=== PATIENT | female | born 1990 | race Hispanic/Latino ===

== ENCOUNTER 2018-10-23 17:39 | Emergency (ER) | payer OTHER ==
--- OUTSIDE RECORDS SUMMARY | 2018-10-23 17:42 | XMS REPORT ---
:1990 [facility] Address [address] [place] [address] Dr. [address] [place] [id number] Care Team Providers Name Role Phone Unavailable Unavailable Unavailable Problems This patient has no known problems. Allergies, Adverse Reactions, Alerts This patient has no known allergies or adverse reactions. Medications This patient has no known medications.
--- OUTSIDE RECORDS SUMMARY | 2018-10-23 17:42 | XMS REPORT | Summary of Care ---
:1990 Author Organization [facility] Address [address] [place] [id number]- Encounter HQ Encntr_alias(FIN) [id number] Date(s): 04/10/16 - 04/10/[address] [address]- [phone] Discharge Disposition: Home or Self Care Attending Physician: Marily Pimentel MD Admitting Physician: Marily Pimentel MD Referring Physician: Marily Pimentel MD Vital Signs No data available for this section Problem List No data available for this section Allergies, Adverse Reactions, Alerts Substance Reaction Severity Status NKDA Active Medications No data available for this section Results No data available for this section Immunizations No data available for this section Procedures No data available for this section Social History No data available for this section Assessment and Plan No data available for this section
--- OUTSIDE RECORDS SUMMARY | 2018-10-23 17:42 | XMS REPORT | Continuity of Care Document ---
:1990 Author Organization Interface Problems Problem Status Onset Classification Date Comments Source Date Reported R51 HEADACHE Active [place] [address] [place] R[address] HEADACHE Active [facility] Medications Medication Details Route Status Patient Ordering Order Source Instructions Provider Date Allergies, Adverse Reactions, Alerts Substance Category Reaction Severity Reaction Status Date Comments Source type Reported Immunizations Immunization Date Given Site Status Last Updated Comments Source Results Order Results Value Reference Date Interpretation Comments Source Name Range Brain wo Brain wo EXAM: CT BRAIN WITHOUT CONTRAST 04/10 - contrast contrast /2015 - [facility] DATE: 04/10/2016 1:28 PM CDT Read by: Alexandro Polo MD Dictated Date/time: 04/10/16 15:00 Electronically Signed by: Alexandro Polo MD 04/10/16 15:01 FINAL REPORT INDICATION: R51 Headache COMPARISON: None. TECHNIQUE: Routine axial CT images of the brain were obtained. IV contrast: None. DLP: mGy-cm FINDINGS: Non-contrast images of the head demonstrate no edema, hemorrhage, mass lesion or other acute intracranial abnormality. Valadez-white matter distinction is preserved. The ventricles are normal. The basal cisterns and sulci are normal in size. Mild chronic inflammatory change of the paranasal sinus. Partial opacification of the mastoid air cells. IMPRESSION: 1. No definite acute infarct or intracranial hemorrhage detected. If there is further concern for intracranial pathology or acute stroke, MRI of the brain may be performed for complete assessment. SL: [id number] Vital Signs Vital Sign Value Date Comments Source Encounters Location Location Encounter Encounter Reason Attending ADM DC Status Source Details Type Number For Provider Date Date Visit [facility] Outpatient [id number] Amrily 04/10 04/11 DB Pimentel /2015 [facility] Procedures Procedure Code Date Perfomer Comments Source
[2018-10-23 18:42] LABS: Urine Blood NEGATIVE (NEG); Urine Glucose 2+ (NEG); Urine Protein 1+ (NEG); Urine Specific Gravity 1.015 (1.005-1.030); Urine pH 6.5 (5.0-7.0)
[2018-10-23] MEDS ORDERED: FENTANYL CITR 100 MCG/2 ML ONE ×2 (18:47→19:49)
[2018-10-23] MEDS ORDERED: ONDANSETRON 4 MG/2 ML VIAL ONE (18:47)
[2018-10-23] MEDS ORDERED: NA CHLORIDE 0.9% 1,000 ML ONE (18:47)
[2018-10-23 18:53] LABS: Absolute Lymphocytes (CBC) 3.7 K/uL (0.7-4.9); Absolute Monocytes 0.7 K/uL (0.1-1.3); Absolute Neutrophil 4.1 K/uL (1.8-8.0); Basophils % 0.5 % (0-1.3); Eosinophils % 0.7 % (0-4.4); Hematocrit 42.7 % (36.0-45.0); Lymphocytes % 43.3 % (15.3-44.8); MPV 8.1 fL (7.6-11.3); Monocytes % 7.9 % (3.3-12.3); RBC Red Blood Cell Count 4.88 M/uL (3.86-4.86)
[2018-10-23 19:08] LABS: Urine Bacteria <20 /HPF (<20); Urine RBC NONE SEEN /HPF (NONE SEEN); Urine Yeast FEW (NONE SEEN)
[2018-10-23 19:09] LABS: Urine Culture Reflex Order NOT NEEDED
[2018-10-23 19:10] LABS: BUN Blood Urea Nitrogen 10 mg/dL (7-18); Bicarbonate 28 mmol/L (21-32); Glucose Level 90 mg/dL (74-106); Potassium 3.2 mmol/L (3.5-5.1); Sodium Level 139 mmol/L (136-145)
[2018-10-23] MEDS ORDERED: KCL 20 MEQ/100 mL IVPB 20 MEQ/100 ML BAG IV ONE (19:46)
--- NOTE | 2018-10-23 20:33 | RAD REPORT ---
EXAM DESCRIPTION: CT - Abdomen Pelvis W Contrast - 10/23/2018 8:18 pm CLINICAL HISTORY: Abdominal pain, right flank pain COMPARISON: None. TECHNIQUE: Biphasic, helical CT imaging of the abdomen and pelvis was performed following 100 ml non -ionic IV contrast. Oral contrast was given. All CT scans are performed using dose optimization technique as appropriate and may include automated exposure control or mA/KV adjustment according to patient size. FINDINGS: No suspicious findings in the lung bases. The liver, spleen, and pancreas show no suspicious findings. Gallbladder and biliary tree are also wi thout suspicious finding. Symmetric renal function is seen with no hydronephrosis or suspicious renal mass. No pyelonephritis o r acute parenchymal process. No bladder abnormalities. No adrenal abnormalities. No dilated bowel loops or bowel wall thickening. Appendix is normal. No free air or pneumatosis. No f ocal inflammatory stranding. No hernia, mass or bulky lymphadenopathy. No uterine abnormality. Physiologic quantity of free fluid is seen in the cul-de-sac. Left ovary is u nremarkable. Right ovary contains a 3 centimeter cyst. No cyst rupture or hemorrhage findings. No suspicious bony findings. IMPRESSION: Contrast enhanced CT abdomen and pelvis showing no acute or emergent finding. A 3 centimeter right ovarian cyst is present without rupture or hemorrhage finding.
[2018-10-23] MEDS ORDERED: KETOROLAC 30 MG/ML INJ ONE (21:18)
--- NOTE | 2018-10-23 21:28 | EDPHYS ---
Physician Documentation [facility] Name: Idalia Pastor Age: 28 yrs Sex: Female : 1990 Arrival Date: 10/23/2018 Time: 17:42 Bed 5 Private MD: ED Physician Avinash Raman HPI: 10/23 20:12 This 28 yrs old Female presents to ER via Ambulatory with complaints of snw Abdominal Pain, Back Pain. 20:12 The patient presents with abdominal pain. Onset: The symptoms/episode began/occurred snw suddenly, 3 day(s) ago, and became worse today, and became persistent. The symptoms radiate to back. Associated signs and symptoms: Pertinent positives: nausea and vomiting. The symptoms are described as constant, sharp. Severity of pain: At its worst the pain was moderate severe. The patient has not experienced similar symptoms in the past. saw underwriter recently (Sunday) dx with UTI, taking Macrobid. 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 - Social history:: Smoking status: . - Ebola Screening: : Patient denies travel to an Ebola-affected area in the 21 days before illness onset. ROS: 20:10 Constitutional: Negative for fever, chills, and weight loss, Eyes: Negative for injury, snw pain, redness, and discharge, ENT: Negative for injury, pain, and discharge, Neck: Negative for injury, pain, and swelling, Cardiovascular: Negative for chest pain, palpitations, and edema, Respiratory: Negative for shortness of breath, cough, wheezing, and pleuritic chest pain, Back: Negative for injury and pain, : Negative for injury, bleeding, discharge, and swelling, MS/Extremity: Negative for injury and deformity, Skin: Negative for injury, rash, and discoloration, Neuro: Negative for headache, weakness, numbness, tingling, and seizure. 20:10 Abdomen/GI: Positive for abdominal pain, nausea, abdominal cramps, pain from esophagus to rectum and right lower quad tenderness. Exam: 20:10 Constitutional: This is a well developed, well nourished patient who is awake, alert, snw and in no acute distress. Head/Face: Normocephalic, atraumatic. Eyes: Pupils equal round and reactive to light, extra-ocular motions intact. Lids and lashes normal. Conjunctiva and sclera are non-icteric and not injected. Cornea within normal limits. Periorbital areas with no swelling, redness, or edema. ENT: Nares patent. No nasal discharge, no septal abnormalities noted. Tympanic membranes are normal and external auditory canals are clear. Oropharynx with no redness, swelling, or masses, exudates, or evidence of obstruction, uvula midline. Mucous membranes moist. Neck: Trachea midline, no thyromegaly or masses palpated, and no cervical lymphadenopathy. Supple, full range of motion without nuchal rigidity, or vertebral point tenderness. No Meningismus. Chest/axilla: Normal chest wall appearance and motion. Nontender with no deformity. No lesions are appreciated. Cardiovascular: Regular rate and rhythm with a normal S1 and S2. No gallops, murmurs, or rubs. Normal PMI, no JVD. No pulse deficits. Respiratory: Lungs have equal breath sounds bilaterally, clear to auscultation and percussion. No rales, rhonchi or wheezes noted. No increased work of breathing, no retractions or nasal flaring. Back: No spinal tenderness. No costovertebral tenderness. Full range of motion. Skin: Warm, dry with normal turgor. Normal color with no rashes, no lesions, and no evidence of cellulitis. MS/ Extremity: Pulses equal, no cyanosis. Neurovascular intact. Full, normal range of motion. Neuro: Awake and alert, GCS 15, oriented to person, place, time, and situation. Cranial nerves II-XII grossly intact. Motor strength 5/5 in all extremities. Sensory grossly intact. Cerebellar exam normal. Normal gait. Psych: Awake, alert, with orientation to person, place and time. Behavior, mood, and affect are within normal limits. 20:10 Abdomen/GI: Inspection: abdomen appears normal, Bowel sounds: normal, in all quadrants, Palpation: moderate abdominal tenderness, severe abdominal tenderness, in the right lower quadrant. Vital Signs: 17:47 BP 144 / 84; Pulse 68; Resp 17; Temp 97.9(TE); Pulse Ox 98% on R/A; Weight 55.79 kg tw2 (R); Height 4 ft. 11 in. (149.86 cm); Pain 8/10; 18:45 BP 110 / 81; Pulse 83; Resp 15; Pulse Ox 99% on R/A; hb 20:34 BP 126 / 75; Pulse 64; Resp 16 S; Pulse Ox 100% on R/A; bb 20:35 BP 123 / 84; Pulse 62; Resp 16; Pulse Ox 100% on R/A; mt 21:30 BP 126 / 81; Pulse 65; Resp 16 S; Pulse Ox 100% on R/A; jd3 17:47 Body Mass Index 24.84 (55.79 kg, 149.86 cm) tw2 MDM: 17:58 Patient medically screened. snw 20:14 Data reviewed: vital signs, nurses notes. Data interpreted: Pulse oximetry: on room air snw is 99 %. Interpretation: normal. Response to treatment: fentanyl repeated at 1950. Awaiting: Pt to CT via w/c. 10/23 18:01 Order name: CBC with Diff; Complete Time: 19:00 snw 10/23 18:01 Order name: Chem 7; Complete Time: 19:26 snw 10/23 18:01 Order name: Urine Microscopic Only; Complete Time: 19:26 snw 10/23 18:01 Order name: Urine Culture snw 10/23 18:01 Order name: Blood Culture Adult (2) snw 10/23 18:28 Order name: Urine Dipstick--Ancillary (enter results); Complete Time: 18:46 bd 10/23 18:01 Order name: CT Abd/Pelvis - W/Contrast; Complete Time: 20:34 snw 10/23 18:28 Order name: Urine --Ancillary (enter results); Complete Time: 18:46 bd 10/23 18:34 Order name: Glucose, Ancillary Testing; Complete Time: 18:37 EDMS 10/23 18:01 Order name: Urine Test (obtain specimen); Complete Time: 18:44 snw 10/23 18:01 Order name: Urine Dipstick-Ancillary (obtain specimen); Complete Time: 18:44 snw 10/23 18:01 Order name: FSBS; Complete Time: 18:32 snw 10/23 18:02 Order name: NPO; Complete Time: 18:34 snw Administered Medications: 18:43 Drug: NS 0.9% 1000 ml Route: IV; Rate: 1 bolus; Site: right antecubital; hb 19:15 Follow up: Response: No adverse reaction; IV Status: Completed infusion jd3 18:43 Drug: fentaNYL (PF) 25 mcg Route: IVP; Site: right antecubital; hb 19:15 Follow up: Response: No adverse reaction jd3 18:43 Drug: Zofran 4 mg Route: IVP; Site: right antecubital; hb 19:45 Follow up: Response: No adverse reaction jd3 19:45 Drug: NS 0.9% 1000 ml Route: IV; Rate: 1 bolus; Site: right antecubital; jd3 22:12 Follow up: Response: No adverse reaction; IV Status: Completed infusion jd3 19:45 Drug: Potassium Chloride 20 mEq Route: IV; Rate: calculated rate; Site: right j antecubital; 22:12 Follow up: Response: No adverse reaction; IV Status: Completed infusion jd3 19:45 Drug: fentaNYL (PF) 25 mcg Route: IVP; Site: right antecubital; jd3 22:13 Follow up: Response: No adverse reaction jd3 21:00 Drug: TORadol 30 mg Route: IVP; Site: right antecubital; jd3 22:13 Follow up: Response: No adverse reaction jd3 Point of Care Testing: Blood Glucose: 18:23 Blood Glucose: 100 mg/dL; dh3 Ranges: Critical Glucose Levels:Adult <50 mg/dl or >400 mg/dl <40 mg/dl or >180 mg/dl Disposition: 10/24 06:50 Co-signature as Attending Physician, Avinash Raman MD I agree with the assessment and kdr plan of care. PA/SALESPERSON MEN'S FURNISHINGS's history reviewed, patient interviewed, and examined. Disposition: 10/23/18 21:27 Discharged to Home. Impression: Other and unspecified ovarian cysts, Unspecified abdominal pain, Hypokalemia. - Condition is Stable. - Discharge Instructions: Abdominal Pain, Adult, Potassium Content of Foods, Ovarian Cyst, Hypokalemia. - Prescriptions for Bentyl 20 mg Oral Tablet - take 1 tablet by ORAL route every 6 hours As needed; 20 tablet. - Medication Reconciliation Form, Thank You Letter, Antibiotic Education, Prescription Opioid Use form. - Follow up: Private Physician; When: 2 - 3 days; Reason: Recheck today's complaints, Continuance of care, Re-evaluation by your physician. Follow up: Emergency Department; When: As needed; Reason: Worsening of condition. Signatures: Dispatcher [employer] EDMS Avinash Raman MD MD [facility] Patt Stinson, MODESTO-C CHERRY PICKER OPERATOR-Csnw Viviana Khan, RN RN Genesis Figueroa RN RN tw2 Rosas Bruce RN RN jd3 Corrections: (The following items were deleted from the chart) 10/23 22:14 21:27 10/23/2018 21:27 Discharged to Home. Impression: Other and unspecified ovarian jd3 cysts; Unspecified abdominal pain; Hypokalemia. Condition is Stable. Forms are Medication Reconciliation Form, Thank You Letter, Antibiotic Education, Prescription Opioid Use. Follow up: Private Physician; When: 2 - 3 days; Reason: Recheck today's complaints, Continuance of care, Re-evaluation by your physician. Follow up: Emergency Department; When: As needed; Reason: Worsening of condition. snw
--- NOTE | 2018-10-23 21:28 | ER ---
Nurse's Notes [facility] Name: Idalia Pastor Age: 28 yrs Sex: Female : 1990 Arrival Date: 10/23/2018 Time: 17:42 Bed 5 Private MD: Diagnosis: Other and unspecified ovarian cysts;Unspecified abdominal pain;Hypokalemia Presentation: 10/23 17:45 Presenting complaint: Patient states: last Sunday i went to my dr appt my dr sent me tw2 here for xray and blood work and it has gotten awful today, i have this pain all the way from my throat down to my waist like this burning pain, and my right side has been hurting, i havent been able to eat or drink, it hurts all the way through my back. Transition of care: patient was not received from another setting of care. Onset of symptoms was October 23, 2018. Risk Assessment: Do you want to hurt yourself or someone else? Patient reports no desire to harm self or others. Initial Sepsis Screen: Does the patient meet any 2 criteria? No. Patient's initial sepsis screen is negative. Does the patient have a suspected source of infection? No. Patient's initial sepsis screen is negative. Care prior to arrival: None. 17:45 Method Of Arrival: Ambulatory tw2 17:45 Acuity: KEN 3 tw2 Triage Assessment: 17:48 General: Appears uncomfortable, Behavior is calm, cooperative, appropriate for age. tw2 Pain: Complains of pain in abdomen Pain radiates to back. GI: Reports lower abdominal pain, upper abdominal pain, bloating, nausea. 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 - Social history:: Smoking status: . - Ebola Screening: : Patient denies travel to an Ebola-affected area in the 21 days before illness onset. Screenin:15 Abuse screen: Denies threats or abuse. Denies injuries from another. Nutritional hb screening: No deficits noted. Tuberculosis screening: No symptoms or risk factors identified. Fall Risk None identified. Assessment: 18:15 General: Appears in no apparent distress. uncomfortable, Behavior is calm, cooperative. hb Pain: Pain currently is 8 out of 10 on a pain scale. Neuro: Level of Consciousness is awake, alert, obeys commands, Oriented to person, place, time, situation. Cardiovascular: Capillary refill < 3 seconds Patient's skin is warm and dry. Respiratory: Airway is patent Respiratory effort is even, unlabored, Respiratory pattern is regular, symmetrical, Breath sounds are clear bilaterally. GI: Abdomen is non-distended, Bowel sounds present X 4 quads. Abd is soft and non tender X 4 quads. Reports lower abdominal pain, upper abdominal pain, nausea. : No signs and/or symptoms were reported regarding the genitourinary system. EENT: No signs and/or symptoms were reported regarding the EENT system. Derm: Skin is intact, is healthy with good turgor. Musculoskeletal: No signs and/or symptoms reported regarding the musculoskeletal system. 19:01 Reassessment: PT finished drinking oral contrast, Ted in CT notified. hb 19:30 Reassessment: Patient appears in no apparent distress at this time. Patient and/or bb family updated on plan of care and expected duration. Pain level reassessed. Patient is alert, oriented x 3, equal unlabored respirations, skin warm/dry/pink. 20:35 Reassessment: Patient appears in no apparent distress at this time. Patient and/or bb family updated on plan of care and expected duration. Pain level reassessed. Patient is alert, oriented x 3, equal unlabored respirations, skin warm/dry/pink. 21:31 Reassessment: Patient appears in no apparent distress at this time. Patient and/or jd3 family updated on plan of care and expected duration. Pain level reassessed. Patient is alert, oriented x 3, equal unlabored respirations, skin warm/dry/pink. awaiting IV infusion to finish before discharge. 22:10 Reassessment: Patient appears in no apparent distress at this time. Patient and/or jd3 family updated on plan of care and expected duration. Pain level reassessed. Patient is alert, oriented x 3, equal unlabored respirations, skin warm/dry/pink. Patient states feeling better. Vital Signs: 17:47 BP 144 / 84; Pulse 68; Resp 17; Temp 97.9(TE); Pulse Ox 98% on R/A; Weight 55.79 kg tw2 (R); Height 4 ft. 11 in. (149.86 cm); Pain 8/10; 18:45 BP 110 / 81; Pulse 83; Resp 15; Pulse Ox 99% on R/A; hb 20:34 BP 126 / 75; Pulse 64; Resp 16 S; Pulse Ox 100% on R/A; bb 20:35 BP 123 / 84; Pulse 62; Resp 16; Pulse Ox 100% on R/A; mt 21:30 BP 126 / 81; Pulse 65; Resp 16 S; Pulse Ox 100% on R/A; jd3 17:47 Body Mass Index 24.84 (55.79 kg, 149.86 cm) tw2 ED Course: 17:42 Patient arrived in ED. mr 17:47 Triage completed. tw2 17:48 Arm band placed on. tw2 17:58 Patt Stinson [facility]C [facility] snw 17:58 Avinash Raman MD is Attending Physician. snw 18:04 Odilon Greer, LONG is Primary Nurse. bp 18:15 Patient has correct armband on for positive identification. Placed in gown. Bed in low hb position. Call light in reach. Side rails up X 1. 18:21 Initial lab(s) drawn, by me, sent to lab. First set of blood cultures drawn by me. 3 Inserted saline lock: 20 gauge in right antecubital area, using aseptic technique. Blood collected. 18:40 Second set of blood cultures drawn by me. dh3 20:15 CT completed. Patient tolerated procedure well. Patient moved back from CT. vm2 20:18 CT Abd/Pelvis - W/Contrast In Process Unspecified. EDMS 22:09 No provider procedures requiring assistance completed. IV discontinued, intact, jd3 bleeding controlled, No redness/swelling at site. Pressure dressing applied. Administered Medications: 18:43 Drug: NS 0.9% 1000 ml Route: IV; Rate: 1 bolus; Site: right antecubital; hb 19:15 Follow up: Response: No adverse reaction; IV Status: Completed infusion jd3 18:43 Drug: fentaNYL (PF) 25 mcg Route: IVP; Site: right antecubital; hb 19:15 Follow up: Response: No adverse reaction jd3 18:43 Drug: Zofran 4 mg Route: IVP; Site: right antecubital; hb 19:45 Follow up: Response: No adverse reaction jd3 19:45 Drug: NS 0.9% 1000 ml Route: IV; Rate: 1 bolus; Site: right antecubital; jd3 22:12 Follow up: Response: No adverse reaction; IV Status: Completed infusion jd3 19:45 Drug: Potassium Chloride 20 mEq Route: IV; Rate: calculated rate; Site: right jd3 antecubital; 22:12 Follow up: Response: No adverse reaction; IV Status: Completed infusion jd3 19:45 Drug: fentaNYL (PF) 25 mcg Route: IVP; Site: right antecubital; jd3 22:13 Follow up: Response: No adverse reaction jd3 21:00 Drug: TORadol 30 mg Route: IVP; Site: right antecubital; jd3 22:13 Follow up: Response: No adverse reaction jd3 Point of Care Testing: Blood Glucose: 18:23 Blood Glucose: 100 mg/dL; dh3 Ranges: Outcome: 21:27 Discharge ordered by . snw 22:09 Discharged to home ambulatory, with family. jd3 22:09 Condition: stable 22:09 Discharge instructions given to patient, family, Instructed on discharge instructions, follow up and referral plans. medication usage, Demonstrated understanding of instructions, follow-up care, medications, Prescriptions given X 1. 22:14 Patient left the ED. jd3 Signatures: Dispatcher [employer] EDMS Patt Stinson, MANUFACTURING DESIGN ENGINEER-C MANUFACTURING DESIGN ENGINEER-Csnw Quang Evangelina mr Hiwot Mandujano, RN Viviana Lyman RN RN hb Wise, Tara, RN RN 2 Layne Lal [facility] Juliana Cruz mt, Deanna 3 Rosas Bruce RN RN jd3 Odilon Greer RN RN bp
== END 2018-10-23 22:14 | disposition home or self-care (01) ==
LOC: ER 17:39
DX: N83.299 Other ovarian cyst, unspecified side (principal); E87.6 Hypokalemia; E11.9 Type 2 diabetes mellitus without complications; Z79.4 Long term (current) use of insulin
CPT/HCPCS: 36415; 74177; 80048; 81003; 81015; 81025; 82962; 85025; 87040; 87086; 87088; 96361; 96365; 96366; 96375; 99284; J2405; J3010; J7030; Q9967

== ENCOUNTER 2019-01-30 13:55 | Emergency (ER) | payer OTHER ==
--- OUTSIDE RECORDS SUMMARY | 2019-01-30 14:28 | XMS REPORT | Continuity of Care Document ---
:[address] [facility] [employer] [place] Care Team Providers Name Role Phone [facility] freee Unavailable Unavailable Problems Problem Status Onset Classification Date Comments Source Date Reported R51 HEADACHE Active [place] [address] [place] R51 [address] HEADACHE Active [facility] Medications No Data Provided for This Section Allergies, Adverse Reactions, Alerts No Known Medication Allergies Immunizations No Data Provided for This Section Results No Data Provided for This Section Pathology Reports No Data Provided for This Section Diagnostic Reports Report Value Date Source Brain wo contrast CT EXAM: CT BRAIN WITHOUT CONTRAST 04/10/2016 [facility] DATE: 04/10/2016 1:28 PM CDT INDICATION: R51 Headache COMPARISON: None. TECHNIQUE: Routine [...] may be performed for complete assessment. SL: [id number] Consultation Notes No Data Provided for This Section Discharge Summaries No Data Provided for This Section History and Physicals No Data Provided for This Section Vital Signs No Data Provided for This Section Encounters Location Location Encounter Encounter Reason Attending ADM DC Status Source Details Type Number For Provider Date Date Visit [facility] Outpatient [id number] Marily 04/10 04/11 [facility] [place] /2015 [facility] Procedures No Data Provided for This Section Assessment and Plan No Data Provided for This Section Plan of Care No Data Provided for This Section Social History Social History Date Source No data available for this 04/11/2016 [facility] section Family History No Data Provided for This Section Advance Directives No Data Provided for This Section Functional Status No Data Provided for This Section
[2019-01-30 14:32] LABS: Urine Blood 1+ (NEG); Urine Glucose 2+ (NEG); Urine Protein 2+ (NEG)
[2019-01-30] MEDS ORDERED: ACETAMINOPHEN 500 MG TAB ONE (15:01)
[2019-01-30] MEDS ORDERED: ONDANSETRON 4 MG/2 ML VIAL ONE (15:01)
[2019-01-30] MEDS ORDERED: NA CHLORIDE 0.9% 1,000 ML ONE (15:01)
[2019-01-30] MEDS ORDERED: MORPHINE 4 MG/ML SYR ONE (15:01)
[2019-01-30 15:06] LABS: Urine Bacteria >50 /HPF (<20); Urine Culture Reflex Order NOT NEEDED; Urine RBC <5 /HPF (NONE SEEN)
[2019-01-30 15:18] LABS: Absolute Lymphocytes (CBC) 0.6 K/uL (0.7-4.9); Basophils % 0.2 % (0-1.3); Hematocrit 41.2 % (36.0-45.0); Lymphocytes % 7.6 % (15.3-44.8); MPV 7.9 fL (7.6-11.3); Monocytes % 5.6 % (3.3-12.3); RBC Red Blood Cell Count 4.79 M/uL (3.86-4.86)
[2019-01-30 15:34] LABS: ALT/SGPT 25 U/L (12-78); AST/SGOT 9 U/L (15-37); Albumin 3.6 g/dL (3.4-5.0); Alkaline Phosphatase 50 U/L (45-117); BUN Blood Urea Nitrogen 12 mg/dL (7-18); Bicarbonate 26 mmol/L (21-32); Bilirubin Direct 0.1 mg/dL (0-0.2); Bilirubin Total 0.5 mg/dL (0.2-1.0); Glucose Level 199 mg/dL (74-106); Lipase 87 U/L (73-393); Potassium 3.7 mmol/L (3.5-5.1); Protein, Total 7.9 g/dL (6.4-8.2); Sodium Level 135 mmol/L (136-145)
--- NOTE | 2019-01-30 16:23 | RAD REPORT ---
EXAM DESCRIPTION: CT - Abdomen Pelvis W Contrast - 01/30/2019 3:46 pm CLINICAL HISTORY: Abdominal pain/left flank pain. COMPARISON: October 2018 TECHNIQUE: Computed axial tomography of the abdomen pelvis was obtained. 100 cc Isovue-300 was admin istered intravenously. Oral contrast was not requested which limits evaluation of bowel. All CT scans are performed using dose optimization technique as appropriate and may include automated exposure control or mA/KV adjustment according to patient size. FINDINGS: 19 millimeter area of low density present within the left kidney reaching the periphery co nsistent with pyelonephritis. The liver, spleen, pancreas, adrenal and right kidney appear unremarkable. There is no evidence of diverticulitis. Normal appendix Gallstones without gallbladder wall thickening 22 millimeter left ovarian cyst without significant free fluid IMPRESSION: Mild left pyelonephritis
[2019-01-30] MEDS ORDERED: KETOROLAC 30 MG/ML INJ ONE (16:31)
[2019-01-30] MEDS ORDERED: CEFTRIAXONE 1000 MG/VIAL ONE (16:51)
[2019-01-30] MEDS ORDERED: NA CHLORIDE 0.9% 100 ML IV ONE (16:51)
[2019-01-30] MEDS ORDERED: FENTANYL CITR 100 MCG/2 ML ONE (17:33)
[2019-01-30] MEDS ORDERED: MAGNE/ALUM HYDROXD 30 ML UCUP ONE (18:06)
[2019-01-30] MEDS ORDERED: LIDOCAINE VISCOUS 2% SOLN 15 ML UDC ONE (18:07)
[2019-01-30] MEDS ORDERED: NA CHLORIDE 0.9% 250 ML ONE (18:07)
[2019-01-30] MEDS ORDERED: DIPHENHYDRAMINE 50 MG/ML VIAL ONE (18:07)
[2019-01-30] MEDS ORDERED: METOCLOPRAMIDE 10 MG/2mL INJ ONE (18:07)
--- NOTE | 2019-01-30 18:58 | EDPHYS ---
Physician Documentation [facility] Name: Idalia Pastor Age: 28 yrs Sex: Female : 1990 Arrival Date: 01/30/2019 Time: 13:58 Bed 30 Private MD: ED Physician Jimmy Rinaldi HPI: 01/30 14:30 This 28 yrs old Female presents to ER via Ambulatory with complaints of Back jmm Pain, Headache. 14:30 The patient presents with pain that is acute, with no known mechanism of injury. Onset: jmm The symptoms/episode began/occurred gradually, 2 day(s) ago. The pain radiates. Associated signs and symptoms: Pertinent positives: abdominal pain, fever, vomiting. The patient has experienced a previous episode. This is a 28 year old female with a history of dm, that presents to the ED with complaints of left flank pain, vomiting, headache beginning 2 days ago. Patient states having a history of kidney infection with abscess. . 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 - Social history:: Smoking status: Patient/guardian denies using tobacco. - Ebola Screening: : No symptoms or risks identified at this time. ROS: 14:30 Constitutional: Positive for body aches, fever. jmm 14:30 Abdomen/GI: Positive for abdominal pain, nausea and vomiting. 14:30 Back: Positive for flank pain, on the left. 14:30 All other systems are negative. Exam: 14:30 Constitutional: This is a well developed, well nourished patient who is awake, alert, jmm and in no acute distress. Head/Face: atraumatic. Eyes: EOMI, no conjunctival erythema appreciated ENT: Moist Mucus Membranes Neck: Trachea midline, Supple Chest/axilla: Normal chest wall appearance and motion. Cardiovascular: Regular rate and rhythm. No edema appreciated Respiratory: Normal respirations, no respiratory distress appreciated 14:30 Abdomen/GI: Inspection: abdomen appears normal, Palpation: soft, mild abdominal tenderness, in the left upper quadrant. 14:30 Musculoskeletal/extremity: ROM: intact in all extremities. 14:30 Skin: Appearance: Color: normal in color. 14:30 Neuro: Orientation: is normal, Mentation: is normal, Memory: is normal, Gait: is steady. 14:30 Psych: Behavior/mood is pleasant, cooperative. 14:30 Back: CVA tenderness, that is moderate, is noted on the left. [facility] Vital Signs: 14:09 BP 140 / 74; Pulse 107; Resp 16; Temp 99.7; Pulse Ox 100% on R/A; Weight 56.7 kg; hb Height 4 ft. 11 in. (149.86 cm); Pain 7/10; 15:27 BP 113 / 77; Pulse 83; Resp 16; Pulse Ox 98% ; Pain 7/10; rv 15:28 Pain 7/10; rv 16:00 BP 105 / 75; Pulse 75; Resp 16; Temp 99; Pulse Ox 100% on R/A; rv 16:30 BP 104 / 68; Pulse 69; Resp 16; Temp 98.5; Pulse Ox 100% on R/A; rv 17:00 BP 104 / 76; Pulse 63; Resp 16; Temp 98.6; Pulse Ox 100% on R/A; rv 17:30 BP 112 / 77; Pulse 65; Resp 15; Pulse Ox 100% on R/A; rv 18:30 BP 114 / 74; Pulse 81; Resp 18; Pulse Ox 98% on R/A; rv 19:00 BP 101 / 62; Pulse 70; Resp 15; Temp 98.4; Pulse Ox 100% on R/A; rv 14:09 Body Mass Index 25.25 (56.70 kg, 149.86 cm) hb MDM: 14:39 Patient medically screened. [facility] 18:56 Data reviewed: vital signs, nurses notes. Counseling: I had a detailed discussion with chela the patient and/or guardian regarding: the historical points, exam findings, and any diagnostic results supporting the discharge/admit diagnosis, lab results, radiology results, the need for outpatient follow up, to return to the emergency department if symptoms worsen or persist or if there are any questions or concerns that arise at home. 18:56 ED course: Patient is alert and non toxic in appearance. Patient tolerates PO. [facility] Patient's labs do not appear consistent with sepsis. Patient given strict return precautions. Patient understood and agrees with the plan of care. . 20:58 Special discussion: Pharmacy called and requested abx change second to cost. Sub to snw Levaquin 750mg po daily x 10 days per Reena Barrera. 01/30 14:30 Order name: Urine Dipstick--Ancillary (enter results); Complete Time: 14:39 01/30 14:30 Order name: Urine --Ancillary (enter results); Complete Time: 14:39 01/30 14:31 Order name: Urine Microscopic Only; Complete Time: 15:18 01/30 14:31 Order name: Urine Culture 01/30 14:40 Order name: Basic Metabolic Panel; Complete Time: 15:44 [facility] 01/30 14:40 Order name: CBC with Diff [facility] 01/30 14:40 Order name: Creatinine for Radiology; Complete Time: 15:44 [facility] 01/30 14:40 Order name: Hepatic Function; Complete Time: 15:44 [facility] 01/30 14:40 Order name: Lipase; Complete Time: 15:44 [facility] 01/30 14:40 Order name: Procalcitonin; Complete Time: 15:44 [facility] 01/30 14:40 Order name: Lactate; Complete Time: 15:44 [facility] 01/30 14:40 Order name: Blood Culture Adult (2) [facility] 01/30 14:40 Order name: CT Abd/Pelvis - IV Contrast Only; Complete Time: 16:26 [facility] 01/30 14:30 Order name: Urine Dipstick-Ancillary (obtain specimen); Complete Time: 14:31 01/30 14:31 Order name: Urine Test (obtain specimen); Complete Time: 14:31 01/30 14:40 Order name: IV Saline Lock; Complete Time: 15:02 [facility] 01/30 14:40 Order name: Labs collected and sent; Complete Time: 15:02 [facility] Administered Medications: 14:52 Drug: NS 0.9% 1000 ml Route: IV; Rate: 1 bolus; Site: right antecubital; rv 16:41 Follow up: IV Status: Completed infusion; IV Intake: 1000ml rv 14:52 Drug: Zofran 4 mg Route: IVP; Site: right antecubital; rv 15:28 Follow up: Response: No adverse reaction rv 14:52 Drug: Tylenol 1000 mg Route: PO; rv 15:28 Follow up: Response: No adverse reaction rv 14:55 Drug: morphine 4 mg Route: IVP; Site: right antecubital; rv 15:28 Follow up: Pain 7/10 Adult; Response: Pain is unchanged, physician notified rv 16:15 Drug: Ketorolac 30 mg Route: IVP; Site: right antecubital; rv 16:41 Follow up: Response: Pain is unchanged, physician notified rv 16:41 Drug: Rocephin 2 grams Route: IV; Rate: calculated rate; Site: right antecubital; rv 16:48 Follow up: IV Status: Completed infusion; IV Intake: 100ml rv 17:23 Drug: fentaNYL (PF) 25 mcg Route: IVP; Site: right antecubital; rv 17:59 Follow up: Response: Pain is unchanged, physician notified rv 17:47 Not Given (other intervention): Dilaudid 0.5 mg IVP once [facility] 17:57 Drug: Reglan 10 mg Route: IVP; Site: right antecubital; rv 19:12 Follow up: Response: Nausea is decreased rv 17:58 Drug: GI Cocktail without - (Maalox Suspension 30 ml, Lidocaine Liquid 2 % 15 rv ml) Route: PO; 19:11 Follow up: Response: Marked relief of symptoms rv 17:58 Drug: NS 0.9% 250 ml Route: IV; Rate: bolus; Site: right antecubital; rv 19:12 Follow up: IV Status: Completed infusion; IV Intake: 250ml rv 17:59 Drug: Benadryl 12.5 mg Route: IVP; Site: right antecubital; rv 19:12 Follow up: Response: No adverse reaction; Marked relief of symptoms rv Disposition: 01/30/19 18:57 Discharged to Home. Impression: Acute Pyelonephritis. - Condition is Stable. - Discharge Instructions: Pyelonephritis, Adult. - Prescriptions for Zofran ODT 4 mg Oral tablet,disintegrating - place 1 tablet by TRANSLINGUAL route every 4-6 hours; 20 tablet. Tylenol- Codeine #3 300-30 mg Oral Tablet - take 1 tablet by ORAL route every 6 hours As needed; 20 tablet. cefpodoxime 200 mg Oral Tablet - take 1 tablet by ORAL route every 12 hours with food; 20 tablet. Pepcid 20 mg Oral Tablet - take 1 tablet by ORAL route every 12 hours for 5 days; 10 tablet. - Medication Reconciliation Form, Thank You Letter, Antibiotic Education, Prescription Opioid Use form. - Follow up: Private Physician; When: 2 - 3 days; Reason: Recheck today's complaints, Continuance of care, Re-evaluation by your physician. Addendum: 02/01/2019 18:01 Co-signature as Attending Physician, Jimmy Rinaldi MD. g s Signatures: Dispatcher [employer] EDMS Patt Stinson, NAPPER TENDER-C NAPPER TENDER-Csnw Danish Coleman PA PA jmm Williams, Irene, LONG RN Viviana Khan RN RN hb Starr, Gregory, MD MD Jeramie Neff, RN RN rv Corrections: (The following items were deleted from the chart) 01/30 19:13 18:57 01/30/2019 18:57 Discharged to Home. Impression: Acute Pyelonephritis. Condition rv is Stable. Forms are Medication Reconciliation Form, Thank You Letter, Antibiotic Education, Prescription Opioid Use. Follow up: Private Physician; When: 2 - 3 days; Reason: Recheck today's complaints, Continuance of care, Re-evaluation by your physician. chela
--- NOTE | 2019-01-30 18:58 | ER ---
Nurse's Notes [facility] Name: Idalia Pastor Age: 28 yrs Sex: Female : 1990 Arrival Date: 01/30/2019 Time: 13:58 Bed 30 Private MD: Diagnosis: Acute Pyelonephritis Presentation: 01/30 14:07 Presenting complaint: Left flank pain, nausea, and headache x 2 days, vomit x 1 today. hb Pain becomes sharp and severe with deep breath or cough. Denies urinary s/s. Transition of care: patient was not received from another setting of care. Onset of symptoms was January 29, 2019. Risk Assessment: Do you want to hurt yourself or someone else? Patient reports no desire to harm self or others. Care prior to arrival: None. 14:07 Method Of Arrival: Ambulatory hb 14:07 Acuity: KEN 3 hb 16:47 Initial Sepsis Screen: Does the patient meet any 2 criteria? No. Patient's initial rv sepsis screen is negative. Does the patient have a suspected source of infection? Yes: Dysuria/Frequency/Urgency/UTI. [employer]: 14:09 LMP 01/03/2019 hb Historical: - Allergies: 14:10 Latex, Natural Rubber; hb - Home Meds: 14:10 Levemir 100 unit/mL subcutaneous soln 45 units [Active]; Novolog 100 unit/mL Sub-Q soln hb [Active]; Amitriptyline Oral [Active]; - PMHx: 14:10 Diabetes - IDDM; Migraines; hb - PSHx: 14:10 None; hb - Immunization history:: Adult Immunizations up to date. - Social history:: Smoking status: Patient/guardian denies using tobacco. - Ebola Screening: : No symptoms or risks identified at this time. Screenin:38 Abuse screen: Denies threats or abuse. Denies injuries from another. Nutritional iw screening: No deficits noted. Tuberculosis screening: No symptoms or risk factors identified. Fall Risk IV access (20 points). Assessment: 14:37 General: Appears uncomfortable, Behavior is cooperative. Pain: Complains of pain in iw left mid back Pain radiates to left low back. Neuro: Level of Consciousness is awake, alert, obeys commands, Oriented to person, place, time, situation, Moves all extremities. Cardiovascular: Patient's skin is warm and dry. Respiratory: Respiratory effort is even, unlabored, Respiratory pattern is regular. GI:. : Reports pain in left flank(s), with urination. Derm: Skin is intact, is healthy with good turgor. Musculoskeletal: Range of motion: intact in all extremities. 16:00 Reassessment: Patient appears in no apparent distress at this time. Patient and/or rv family updated on plan of care and expected duration. Pain level reassessed. Patient is alert, oriented x 3, equal unlabored respirations, skin warm/dry/pink. patient updated and explained the plan of care. 17:31 Reassessment: Patient appears in no apparent distress at this time. Patient and/or rv family updated on plan of care and expected duration. Pain level reassessed. Patient is alert, oriented x 3, equal unlabored respirations, skin warm/dry/pink. completed antibiotic infusion. no adverse reactions noted. JAJA Peng already talked to the patient and explained the plan of care after discharge. Vital Signs: 14:09 BP 140 / 74; Pulse 107; Resp 16; Temp 99.7; Pulse Ox 100% on R/A; Weight 56.7 kg; hb Height 4 ft. 11 in. (149.86 cm); Pain 7/10; 15:27 BP 113 / 77; Pulse 83; Resp 16; Pulse Ox 98% ; Pain 7/10; rv 15:28 Pain 7/10; rv 16:00 BP 105 / 75; Pulse 75; Resp 16; Temp 99; Pulse Ox 100% on R/A; rv 16:30 BP 104 / 68; Pulse 69; Resp 16; Temp 98.5; Pulse Ox 100% on R/A; rv 17:00 BP 104 / 76; Pulse 63; Resp 16; Temp 98.6; Pulse Ox 100% on R/A; rv 17:30 BP 112 / 77; Pulse 65; Resp 15; Pulse Ox 100% on R/A; rv 18:30 BP 114 / 74; Pulse 81; Resp 18; Pulse Ox 98% on R/A; rv 19:00 BP 101 / 62; Pulse 70; Resp 15; Temp 98.4; Pulse Ox 100% on R/A; rv 14:09 Body Mass Index 25.25 (56.70 kg, 149.86 cm) hb ED Course: 13:58 Patient arrived in ED. as 14:09 Triage completed. hb 14:09 Arm band placed on. hb 14:29 Danish Coleman PA is PHCP. m 14:29 Jimmy Rinaldi MD is Attending Physician. m 14:36 Giovanna Carroll, RN is Primary Nurse. iw 14:52 Inserted saline lock: 20 gauge in right antecubital area, using aseptic technique. rv Blood collected. 15:02 Primary Nurse role handed off by Giovanna Carroll, RN rv 15:02 Jeramie Neff, LONG is Primary Nurse. rv 15:16 Second set of blood cultures drawn by ak. lt1 15:24 Radiology exam delayed due to lab results not completed at this time. (BUN/Creatinine). vm2 15:29 Radiology exam delayed due to lab results not completed at this time. (BUN/Creatinine). vm2 15:48 CT Abd/Pelvis - IV Contrast Only In Process Unspecified. EDMS 16:47 Patient has correct armband on for positive identification. Bed in low position. Call rv light in reach. Side rails up X 1. Adult w/ patient. Pulse ox on. NIBP on. 16:48 No provider procedures requiring assistance completed. rv 19:13 IV discontinued, intact, bleeding controlled, No redness/swelling at site. Pressure rv dressing applied. Administered Medications: 14:52 Drug: NS 0.9% 1000 ml Route: IV; Rate: 1 bolus; Site: right antecubital; rv 16:41 Follow up: IV Status: Completed infusion; IV Intake: 1000ml rv 14:52 Drug: Zofran 4 mg Route: IVP; Site: right antecubital; rv 15:28 Follow up: Response: No adverse reaction rv 14:52 Drug: Tylenol 1000 mg Route: PO; rv 15:28 Follow up: Response: No adverse reaction rv 14:55 Drug: morphine 4 mg Route: IVP; Site: right antecubital; rv 15:28 Follow up: Pain 7/10 Adult; Response: Pain is unchanged, physician notified rv 16:15 Drug: Ketorolac 30 mg Route: IVP; Site: right antecubital; rv 16:41 Follow up: Response: Pain is unchanged, physician notified rv 16:41 Drug: Rocephin 2 grams Route: IV; Rate: calculated rate; Site: right antecubital; rv 16:48 Follow up: IV Status: Completed infusion; IV Intake: 100ml rv 17:23 Drug: fentaNYL (PF) 25 mcg Route: IVP; Site: right antecubital; rv 17:59 Follow up: Response: Pain is unchanged, physician notified rv 17:47 Not Given (other intervention): Dilaudid 0.5 mg IVP once jmm 17:57 Drug: Reglan 10 mg Route: IVP; Site: right antecubital; rv 19:12 Follow up: Response: Nausea is decreased rv 17:58 Drug: GI Cocktail without - (Maalox Suspension 30 ml, Lidocaine Liquid 2 % 15 rv ml) Route: PO; 19:11 Follow up: Response: Marked relief of symptoms rv 17:58 Drug: NS 0.9% 250 ml Route: IV; Rate: bolus; Site: right antecubital; rv 19:12 Follow up: IV Status: Completed infusion; IV Intake: 250ml rv 17:59 Drug: Benadryl 12.5 mg Route: IVP; Site: right antecubital; rv 19:12 Follow up: Response: No adverse reaction; Marked relief of symptoms rv Intake: 16:41 IV: 1000ml; Total: 1000ml. rv 16:48 IV: 100ml; Total: 1100ml. rv 19:12 IV: 250ml; Total: 1350ml. rv Outcome: 18:57 Discharge ordered by MD. jmm 19:11 Discharged to home ambulatory, with family. rv 19:11 Condition: good 19:11 Discharge instructions given to patient, family, Instructed on discharge instructions, follow up and referral plans. medication usage, Demonstrated understanding of instructions, follow-up care, medications, Prescriptions given X 4. 19:13 Patient left the ED. rv Addendum: 02/02/2019 11:53 Addendum: Culture Results: Positive urine culture. Phone call Attempt #1 [email or web address] b [phone]. 12:29 Addendum: Culture Results: Positive urine culture. Prescription called-in to pharmacy h b of choice. Macrobid 100mg PO BID x 10 days called in to [facility]- per Jessenia SALVADOR. Signatures: Dispatcher [employer] EDMS Danish Coleman PA PA jmm Martinez, Amelia as Williams Giovanna, RN RN Viviana Mora, RN RN Layne Lal [facility] Jeramie Neff, RN RN Barbi, Shanthi 1
[2019-01-30 19:53] LABS: Urine White Blood Cell Casts OK
[2019-01-30 19:54] LABS: Blood Morphology Comment NOT SEEN (NOT SEEN); Platelet Estimate ADEQ
== END 2019-01-30 19:13 | disposition home or self-care (01) ==
LOC: ER 13:55
DX: N10 Acute pyelonephritis (principal); E11.9 Type 2 diabetes mellitus without complications; Z79.4 Long term (current) use of insulin
CPT/HCPCS: 36415; 74177; 80048; 80076; 81003; 81015; 81025; 83605; 83690; 84145; 85025; 87040; 87077; 87086; 87088; 87186; 96361; 96365; 96375; 99284; J2405; J2765; J3010; J7030; Q9967

== ENCOUNTER 2021-09-20 19:43 | Emergency (ER) | payer OTHER ==
--- OUTSIDE RECORDS SUMMARY | 2021-09-20 19:45 | XMS REPORT | Continuity of Care Document ---
:1990 Author Organization [facility] t Address [address] [place] [address] Care Team Providers Name Role Phone Nury RODRIGUEZ Primary Care Physician Unavailable ESSIE Attending Clinician Unavailable (TECH), EMG/NCV TESTING Attending Clinician Unavailable SHERWIN Attending Clinician Unavailable Essie CHAPA Attending Clinician SLIGTENHORST_I Attending Clinician Unavailable SLIGTENHORST_I Admitting Clinician Unavailable Payers Payer Name Policy Type Policy Number Effective Date Expiration Date Kell santillan [facility] [id number] 2018 [facility] [employer] 00:00:00 [facility] [id number] 2016 [facility] 00:00:00 [facility] 3 SHARE PROGRAM (HMO) Advance Directives Directive Decision Effective Termination Comments Source Date Date Healthcare Agents on N/A Univ ersity FileNameRelationshipHealthcare [facility] Agent Medical RelationshipCommunicationCompass Memorial Healthcare Care [phone] ([place]) Problems Condition Condition Condition Status Onset Resolution Last Treating Co mments Source Name Details Category Date Date Treatment Clinician Date Nexplanon Nexplanon Disease Active 2020- Uni vers insertion insertion 7-16 ity of 00:00: [place] [address] Medical Branch Obesity Obesity Disease Active 2020-0 Univers (BMI (BMI 6-02 ity of 30-39.9) 30-39.9) 00:00: [place] [address] Medical Branch 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 address pp R51 Diagnosis Active 2016-04-10 Mem oria HEADACHE 04-04 13:15:00 l R51 00:00: [place] HEADACHE 00 Active 04/04/[address] [facility] R51 Diagnosis Active 2016-04-10 Mem oria - 13:25:00 l R51 00:00: [place] 00 Active 04/04/[address] [facility] Type 1 Type 1 Disease Active Overview: Univer s diabetes diabetes 3-30 Formattin ity of mellitus mellitus 00:00: g of this [place] as 00 note Medical might be Branch different from the original. On insulin [id number] 9.3 HEADACHE Diagnosis Active 2016-04-10 M emoria 13:25:00 l HEADACHE Beto n Active [facility] Allergies, Adverse Reactions, Alerts Allergy Allergy Status Severity Reaction(s) Onset Inactive Treating Comm ents Source Name Type Date Date Clinician Latex, Propensi Active Rash Pt states Unive rs Natural ty to 1-12 "I have a ity of Rubber adverse 00:00: little [place] reaction 00 problem Medical s with Branch latex". Pt states she gets red and a rash when exposed to latex. LATEX, Drug Active Rash Univers NATURAL Class 1-12 ity of RUBBER 00:00: [place] 00 Medical Branch RASPBERR DRUG Active Hives Univers Y INGREDI 1-12 ity of 00:00: [place] 00 Medical Branch Raspberr Propensi Active Hives Univer s y ty to 1-12 ity of adverse 00:00: [place] reaction 00 Medical s Branch Social History Social Habit Start Date Stop Date Quantity Comments Source History [facility] University o f Alcohol Frequency [place] M edical Branch History [facility] University o f Alcohol Std Drinks [place] [facility] History [facility] University o f Alcohol Binge [place] Medic al Branch Exposure to Not sure University SARS-CoV-2 (event) [facility] Alcohol intake 2020-01-29 2020-01-29 0 /d University of 00:00:00 00:00:00 [facility] Alcohol Comment 2018-10-18 2018-10-18 occasionally Univers ity of 00:00:00 00:00:00 [facility] Social History 2016-04-11 2016-04-11 [facility] 04:59:00 04:59:00 Tobacco use and 2013-01-30 2013-01-30 Never used Universit y of exposure 00:00:00 00:00:00 [facility] History of tobacco 2011-02-04 Smoker Univer sity of use 00:00:00 [facility] Sex [birth year] Universit y of 00:00:00 00:00:00 [facility] Smoking Status Start Date Stop Date Source Former smoker 2013-01-30 00:00:00 2013-01-30 00:00:00 Universi ty of [facility] Medications Ordered Filled Start Stop Current Ordering Indication Dosage Frequency Signature Comments Components Source Medication Medication Date Date Medication? Clinician (SIG) Name Name GABAPENTIN Yes [id number] 100mg TAKE 1 Univers 100 mg 9-22 CAPSULE BY ity of capsule 00:00: MOUTH 2 [place] (TWO) Medical TIMES Branch DAILY NEEDED FOR PAIN (SCALE 4-6) OR PAIN (SCALE 7-10) FOR UP TO 60 DOSES. cyclobenzap Yes [id number] 5mg Take 1 Univers rine 5 mg 8-24 tablet by ity o f tablet 00:00: mouth 2 [place] (two) Medical times Branch daily as needed for Muscle Spasms. prednisoLON 2019- Yes [id number] 1[drp] Place 1 Univers E acetate 6-22 9100 Drop in ity of (PRED 00:00: left eye 4 [place] FORTE) 1 % 00 (four) Medical ophthalmic times Branch suspension daily. drops cyclopentol 2019-0 Yes [id number] 1[drp] Place 1 Univers ate 1 % 6-22 9100 Drop in ity of ophthalmic 00:00: left eye 2 [place] drops 00 (two) Medical times Branch daily. amitriptyli 2019- Yes Take by Russ jose r ne HCl 6-04 mouth. ity of (AMITRIPTYL 11:23: [place] INE ORAL) [facility] insulin 2019-0 Yes inject Univers glulisine 6-04 under the ity o f (APIDRA SC) 11:23: skin. [place] [facility] Branch 2020-0 Yes [id number] 1{tbl} Take 1 Univers vitamin 6-03 tablet by ity of w/FA tablet 00:00: mouth [place] 00 daily. [facility] Branch docusate 2019-0 Yes [id number] 240mg Take 1 U nivers calcium 240 6-03 capsule by it y of mg capsule 00:00: mouth once [place] 00 daily as Medical needed for Branch Constipati on. ferrous 2019-0 Yes [id number] 325mg Take 1 Un jose r sulfate 325 6-03 tablet by ity of mg (65 mg 00:00: mouth 2 [place] iron) 00 (two) Medical tablet times Branch daily. ibuprofen 2019-0 Yes [id number] 600mg Take 1 Univers 600 mg 6-03 tablet by ity of tablet 00:00: mouth [place] 00 every 6 Medical (six) Branch hours as needed (Pain). Take with food or milk. vitamin C Yes [id number] 1000mg Take 1 Univers with stephy 6-03 tablet by ity o f hips 1,000 00:00: mouth [place] mg tablet 00 daily. [facility] Immunizations Ordered Filled Immunization Date Status Comments [facility] e Immunization Name Name SARS-COV-2 COVID-19 2021-01-17 Completed Unive rsity of PFIZER VACCINE 00:00:00 [facility] SARS-COV-2 COVID-19 2020-12-27 Completed Unive rsity of PFIZER VACCINE 00:00:00 [facility] TDAP (ADACEL) 2019-10-20 Completed University of VACCINE 00:00:00 [facility] Influenza Virus 2019-03-16 Completed Universit y of Vaccine Quad IM 3+ 00:00:00 [facility] Varicella 2014-10-12 Completed University of (varivax)(chicken 00:00:00 [place] M edical pox) Branch MMR 2014-08-30 Completed University of 00:00:00 [facility] Varicella 2014-08-30 Completed University of (varivax)(chicken 00:00:00 [place] M edical pox) Branch TDAP 2014-06-29 Completed University of 00:00:00 [facility] Influenza Virus 2014-04-20 Completed [facility] of Vaccine (3+ yrs) 00:00:00 [facility] dical Branch TDAP 2012-09-13 Completed [facility] 00:00:00 [facility] Varicella 2011-10-23 Completed University (varivax)(chicken 00:00:00 [facility] edical pox) Branch Rubella 2011-05-18 Completed [facility] 00:00:00 [facility] Vital Signs Vital Name Observation Time Observation Value Comments Source Body height 2021-05-30 21:33:00 149.9 cm [facility] Body weight 2021-05-30 21:33:00 82.555 kg [facility] BMI 2021-05-30 21:33:00 36.76 kg/m2 [facility] Procedures This patient has no known procedures. Encounters Start End Encounter Admission Attending Care Care Encounter Source Date/Time Date/Time Type Type Clinicians Facility Department ID 2021-10-10 2021-10-10 Outpatient R [place] [facility] [id number] Univers 15:15:00 15:15:00 [id number] [facility] 2021-10-03 2021-10-03 Outpatient R (TECH), [facility] [id number] Univers 12:30:00 12:30:00 ANG-DB [id number] [facility] 2021-07-28 2021-07-28 Outpatient R (TECH), [facility] [id number] Univers 10:30:00 10:30:00 ANG-DB [id number] [facility] 2021-07-28 2021-07-28 Outpatient R SHERWIN [facility] [id number] Univers 10:30:00 10:30:00 [place] ity o f [facility] 2021-05-30 2021-05-30 Office [place] [facility] [id number] Univers 14:59:44 15:14:44 Visit HEALTH [id number] it y of CLEAR [id number] [facility] [id number] [address] OFFICE BUILDING 2021-05-25 2021-05-25 Outpatient SLIGTENHORS VFP VFP [id number] [facility] 06:15:00 06:15:00 [place] [id number] Family Practic e 2016-04-10 2016-04-11 Outpatient [facility] [id number] [facility] 18:17:00 04:59:00 ashlee Dalal 01 l [facility] Results This patient has no known results.
[2021-09-20] MEDS ORDERED: ACETAMINOPHEN 500 MG TAB ONE (20:15)
[2021-09-20] MEDS ORDERED: IBUPROFEN 400 MG TAB ONE (20:15)
--- NOTE | 2021-09-20 20:40 | RAD REPORT ---
EXAM DESCRIPTION: RAD - Hand Right 3 View - 09/20/2021 8:21 pm CLINICAL HISTORY: PAIN COMPARISON: No comparisons FINDINGS: No fracture is identified. There is no dislocation or periosteal reaction noted. No acute bone or joint finding. No foreign body, air or significant soft tissue abnormality. IMPRESSION: Negative right hand examination.
--- NOTE | 2021-09-20 21:17 | EDPHYS ---
Physician Documentation [facility] Name: Idalia Pastor Age: 31 yrs Sex: Female : 1990 Arrival Date: 09/20/2021 Time: 19:43 Bed 10 Private MD: ED Physician Avinash Raman HPI: 09/20 20:15 This 31 yrs old Female presents to ER via Ambulatory with complaints of FUNGAL cp INFECTION ON HAND. 20:15 The patient or guardian reports pain, swelling. The complaints affect the right hand cp diffusely. 20:15 Associated signs and symptoms: Pertinent negatives: fever. Patient reports she was cp diagnosed with fungal infection of right hand last Alexandru and since has been using topical antifungal/steroid cream. Patient reports today she has had increased pain to right hand. 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 - Social history:: Smoking status: . ROS: 20:20 MS/extremity: Positive for pain, swelling, tenderness, of the right hand. cp 20:20 Constitutional: Negative for body aches, chills, fever, poor PO intake. cp 20:20 Respiratory: Negative for cough, shortness of breath, wheezing. 20:20 Abdomen/GI: Negative for abdominal pain. 20:20 Skin: Positive for rash, of the right hand. cp 20:20 All other systems are negative. Exam: 20:25 Constitutional: The patient appears in no acute distress, alert, awake, non-toxic, well cp developed, well nourished, uncomfortable. 20:25 Cardiovascular: Rate: normal. cp 20:25 Respiratory: the patient does not display signs of respiratory distress, Respirations: normal. 20:25 Musculoskeletal/extremity: Extremities: grossly normal except: noted in the [place] side of right hand: multiple areas of erythema with swelling, superficial ulceration of skin. no drainage from areas. Vital Signs: 19:54 BP 169 / 96; Pulse 94; Resp 18; Temp 99.1; Pulse Ox 100% ; Weight 78.02 kg; Height 4 al4 ft. 11 in. (149.86 cm); Pain 7/10; 21:34 BP 145 / 65; Pulse 89; Resp 16; Pulse Ox 100% on R/A; st1 19:54 Body Mass Index 34.74 (78.02 kg, 149.86 cm) al4 MDM: 20:03 Patient medically screened. cp 21:00 Differential diagnosis: cellulitis, abscess. cp 21:15 Data reviewed: vital signs, nurses notes, radiologic studies, plain films. cp 21:15 Test interpretation: by ED physician or midlevel provider: plain radiologic studies. cp Counseling: I had a detailed discussion with the patient and/or guardian regarding: the historical points, exam findings, and any diagnostic results supporting the discharge/admit diagnosis, radiology results, to return to the emergency department if symptoms worsen or persist or if there are any questions or concerns that arise at home. 09/20 20:07 Order name: XRAY Hand RIGHT 3 View; Complete Time: 21:06 cp 09/20 21:06 Interpretation: Report reviewed. cp 09/20 21:14 Order name: Sling; Complete Time: 21:17 cp Administered Medications: 20:13 Drug: Tylenol 1000 mg Route: PO; st1 20:13 Drug: Ibuprofen 800 mg Route: PO; st1 21:17 Drug: Clindamycin 600 mg Route: PO; st1 Disposition: 22:42 Co-signature as Attending Physician, Avinash Raman MD I agree with the assessment and kdr plan of care. Disposition Summary: 09/20/21 21:16 Discharge Ordered Location: Home cp Problem: new cp Symptoms: are unchanged cp Condition: Stable cp Diagnosis - Cellulitis of left upper limb - right hand cp Followup: cp - With: Private Physician - When: 2 - 3 days - Reason: Recheck today's complaints Discharge Instructions: - Discharge Summary Sheet cp - Cellulitis, Adult cp Forms: - Medication Reconciliation Form cp - Thank You Letter cp - Antibiotic Education cp - Prescription Opioid Use cp Prescriptions: - Clindamycin HCl 300 mg Oral Capsule - take 1 capsule by ORAL route every 6 hours for 10 days; 40 capsule; Refills: 0, cp Product Selection Permitted - Diclofenac Sodium 75 mg Oral tablet,delayed release (DR/EC) - take 1 tablet by ORAL route 2 times per day; 20 tablet; Refills: 0, Product cp Selection Permitted Signatures: Dispatcher [employer] EDMS Avinash Raman MD MD kdr Sulaiman Sands PA PA cp Larry Otero al4 Brooklyn Hardy RN RN st1 Corrections: (The following items were deleted from the chart) 19:57 19:56 Home Meds: Amitriptyline Oral; al4 al4 19:57 19:56 Home Meds: Levemir 100 unit/mL subcutaneous soln 45 units; al4 al4 20:00 19:56 Home Meds: Novolog 100 unit/mL Sub-Q soln [Inactive]; al4 al4 09/21 18:49 03/ 20:15 Patient reports she was diagnosed with fungal infection of right hand last cp Sunday and since has been using topical antifungal/steroid cream. cp
--- NOTE | 2021-09-20 21:17 | ER ---
Nurse's Notes [facility] Name: Idalia Pastor Age: 31 yrs Sex: Female : 1990 Arrival Date: 09/20/2021 Time: 19:43 Bed 10 Private MD: Diagnosis: Cellulitis of left upper limb-right hand Presentation: 09/20 19:54 Chief complaint: Patient states: diagnosed with fungal infection last Sunday - today it al4 started hurting. Coronavirus screen: Vaccine status: Patient reports receiving the 2nd dose of the covid vaccine. pfizer. Ebola Screen: No symptoms or risks identified at this time. Initial Sepsis Screen: Does the patient meet any 2 criteria? No. Patient's initial sepsis screen is negative. Does the patient have a suspected source of infection? No. Patient's initial sepsis screen is negative. Risk Assessment: Do you want to hurt yourself or someone else? Patient reports no desire to harm self or others. Onset of symptoms was September 14, 2021. 19:54 Method Of Arrival: Ambulatory al4 19:54 Acuity: KEN 3 al4 Triage Assessment: 19:56 General: Appears in no apparent distress. comfortable, Behavior is calm, cooperative. al4 Pain: Complains of pain in right hand Pain currently is 6 out of 10 on a pain scale. Neuro: Level of Consciousness is awake, alert, obeys commands, Oriented to person, place, time, situation. Cardiovascular: Capillary refill < 3 seconds Patient's skin is warm and dry. Respiratory: Airway is patent Respiratory effort is unlabored, Respiratory pattern is regular. Derm: Wound noted right hand. Musculoskeletal: Range of motion: intact in all extremities. 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 - Social history:: Smoking status: . Screenin:32 Abuse screen: Denies threats or abuse. Nutritional screening: No deficits noted. st1 Tuberculosis screening: No symptoms or risk factors identified. Fall Risk None identified. No fall in past 12 months (0 pts). No secondary diagnosis (0 pts). No IV (0 pts). Ambulatory Aid- None/Bed Rest/Nurse Assist (0 pts). Gait- Normal/Bed Rest/Wheelchair (0 pts) Mental Status- Oriented to own ability (0 pts). Total Grier Fall Scale indicates No Risk (0-24 pts). Assessment: 20:00 Reassessment: See triage note. st1 Vital Signs: 19:54 BP 169 / 96; Pulse 94; Resp 18; Temp 99.1; Pulse Ox 100% ; Weight 78.02 kg; Height 4 al4 ft. 11 in. (149.86 cm); Pain 7/10; 21:34 BP 145 / 65; Pulse 89; Resp 16; Pulse Ox 100% on R/A; st1 19:54 Body Mass Index 34.74 (78.02 kg, 149.86 cm) al4 ED Course: 19:43 Patient arrived in ED. kc5 19:56 Triage completed. al4 19:56 Arm band placed on left wrist. al4 19:59 Sulaiman Sands PA [facility]. cp 19:59 Avinash Raman MD is Attending Physician. cp 20:00 Patient has correct armband on for positive identification. Call light in reach. st1 20:09 Brooklyn Hardy, RN is Primary Nurse. st1 20:13 XRAY Hand RIGHT 3 View Sent. st1 20:21 XRAY Hand RIGHT 3 View In Process Unspecified. EDMS 21:21 Sling applied to right arm. st1 21:33 No provider procedures requiring assistance completed. st1 21:33 Patient did not have IV access during this emergency room visit. st1 Administered Medications: 20:13 Drug: Tylenol 1000 mg Route: PO; st1 20:13 Drug: Ibuprofen 800 mg Route: PO; st1 21:17 Drug: Clindamycin 600 mg Route: PO; st1 Outcome: 21:16 Discharge ordered by . cp 21:33 Condition: good st1 21:33 Discharge instructions given to patient, Instructed on discharge instructions, follow up and referral plans. no drinking with medication, medication usage, Demonstrated understanding of instructions, follow-up care, medications, Prescriptions given X 2. 21:33 Discharged to home ambulatory. st1 21:35 Patient left the ED. st1 Signatures: Dispatcher [employer] EDNV Sulaiman Sands PA PA cp Clark, Kasey kc5 Larry Otero al4 Brooklyn Hardy, RN RN st1 Corrections: (The following items were deleted from the chart) 19:56 Home Meds: Amitriptyline Oral; al4 al4 19:57 19:56 Home Meds: Levemir 100 unit/mL subcutaneous soln 45 units; al4 al4 20:00 19:56 Home Meds: Novolog 100 unit/mL Sub-Q soln [Inactive]; al4 al4 21:32 21:32 Reassessment: See triage note st1 st1
[2021-09-20 22:01] VITALS: TEMP 99.1; O2SAT 100
[2021-09-20 22:16] VITALS: BP 145/65
== END 2021-09-20 21:35 | disposition home or self-care (01) ==
LOC: ER 19:43
DX: L03.113 Cellulitis of right upper limb (principal); Z91.040 Latex allergy status; Z91.048 Other nonmedicinal substance allergy status
CPT/HCPCS: 99284

== ENCOUNTER 2021-12-23 13:22 | Emergency (ER) | payer OTHER ==
--- OUTSIDE RECORDS SUMMARY | 2021-12-23 13:25 | XMS REPORT | Continuity of Care Document ---
:1990 Author Organization [facility] t Address [address] [place] [address] Care Team Providers Name Role Phone Sharon Rodriguez Primary Care Physician Anthony SALVADOR C Attending Clinician Sharon CEJA Attending Clinician Unavailable Kailyn PT, T Attending Clinician Unavailable Valerie CHAPA L Attending Clinician Dasia PADILLA Attending Clinician Unavailable Mekhi CHAPA Attending Clinician MEKHI Attending Clinician Unavailable SLIGTENHORST_I Attending Clinician Unavailable STEPHANIEIGTENHORST_I Admitting Clinician Unavailable Payers Payer Name Policy Type Policy Number Effective Date Expiration Date [facility] [id number] 2016 [facility] 00:00:00 [place] [id number] [facility] [place] [place] Problems Condition Condition Condition Status Onset Resolution Last Treating Co mments Source Name Details Category Date Date Treatment Clinician Date Nexplanon Nexplanon Disease Active 2019- Uni vers insertion insertion 7-16 ity of 00:00: [place] 00 Medical Branch Obesity Obesity Disease Active 2020-0 Univers (BMI (BMI 6-02 ity of 30-39.9) 30-39.9) 00:00: [place] 00 Medical Branch 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 On insulin [id number] HEADACHE Diagnosis Active 2016-04-10 M emoria 13:25:00 l HEADACHE Beto n Active [facility] Allergies, Adverse Reactions, Alerts Allergy Allergy Status Severity Reaction(s) Onset Inactive Treating Comm ents Source Name Type Date Date Clinician Latex, Propensi Active Rash Pt states Unive rs Natural ty to 07-27 "I have a ity of Rubber adverse 00:00: little [place] reaction 00 problem Medical s with Branch latex". Pt states she gets red and a rash when exposed to latex. Raspberr Propensi Active Hives Univer s y ty to 12 ity of adverse 00:00: [place] reaction 00 Medical s Branch LATEX, Drug Active Rash Univers NATURAL Class 1-12 ity of RUBBER 00:00: [place] 00 Medical Branch RASPBERR DRUG Active Hives Univers Y INGREDI 112 ity of 00:00: [place] 00 Medical Branch Latex, Propensi Active Rash Pt states Unive rs Natural ty to 12 "I have a ity of Rubber adverse 00:00: little [place] reaction 00 problem Medical s with Branch latex". Pt states she gets red and a rash when exposed to latex. Social History Social Habit Start Date Stop Date Quantity Comments Source History SDOH University o f Alcohol Frequency [place] [facility] History [facility] University o f Alcohol Std Drinks [place] [facility] [place] History [facility] o f Alcohol Binge [place] [facility] al Branch Exposure to 2021-11-28 2021-12-08 Not sure University SARS-CoV-2 (event) 00:00:00 09:37:00 [facility] Alcohol intake 2020-01-29 2020-01-29 0 /d University of 00:00:00 00:00:00 [facility] Alcohol Comment 2018-10-18 2018-10-18 occasionally Univers ity of 00:00:00 00:00:00 [facility] Social History 2016-04-11 2016-04-11 [facility] 04:59:00 04:59:00 Tobacco use and 2013-01-30 2013-01-30 Never used Universit y of exposure 00:00:00 00:00:00 [facility] History of tobacco 2011-02-04 Smoker Univer sity of use 00:00:00 [facility] Sex [birth year] Universit y of 00:00:00 00:00:00 [facility] Smoking Status Start Date Stop Date Source Former smoker 2013-01-30 00:00:00 2013-01-30 00:00:00 Universi ty of [facility] Medications Ordered Filled Start Stop Current Ordering Indication Dosage Frequency Signature Comments Components Source Medication Medication Date Date Medication? Clinician (SIG) Name Name GABAPENTIN Yes [id number] 300mg TAKE 1 Univers 300 mg 5-14 CAPSULE BY ity of capsule 00:00: MOUTH 2 (TWO) Medical TIMES [place] DAILY NEEDED FOR PAIN (SCALE 4-6) OR PAIN (SCALE 7-10). GABAPENTIN Yes [id number] 300mg TAKE 1 Univers 300 mg 5-14 CAPSULE BY ity of capsule 00:00: MOUTH 2 (TWO) Medical TIMES Branch DAILY NEEDED FOR PAIN (SCALE 4-6) OR PAIN (SCALE 7-10). GABAPENTIN Yes [id number] 300mg TAKE 1 Univers 300 mg 5-14 CAPSULE BY ity of capsule 00:00: MOUTH 2 (TWO) Medical TIMES Branch DAILY NEEDED FOR PAIN (SCALE 4-6) OR PAIN (SCALE 7-10). gabapentin 2022-0 Yes [id number] 300mg Take 1 Univers 300 mg 3-28 capsule by ity of capsule 00:00: mouth 2 (two) Medical times Branch daily as needed for Pain (scale 4-6) or Pain (scale 7-10). gabapentin 2021-0 Yes [id number] 300mg Take 1 Univers 300 mg 3-28 capsule by ity of capsule 00:00: mouth 2 (two) Medical times Branch daily as needed for Pain (scale 4-6) or Pain (scale 7-10). gabapentin 2021-0 Yes [id number] 300mg Take 1 Univers 300 mg 3-28 capsule by ity of capsule 00:00: mouth (two) Medical times Branch daily as needed for Pain (scale 4-6) or Pain (scale 7-10). gabapentin 2021-0 2021- No [id number] 300mg Take 1 Univers 300 mg 3-28 05-14 capsule by ity of capsule 00:00: 00:00 mouth 2 [place] 00 :00 (two) Medical times Branch daily as needed for Pain (scale 4-6) or Pain (scale 7-10). GABAPENTIN 2020-0 Yes [id number] 100mg TAKE 1 Univers 100 mg 9-22 CAPSULE BY ity of capsule 00:00: MOUTH (TWO) Medical TIMES Branch DAILY NEEDED FOR PAIN (SCALE 4-6) OR PAIN (SCALE 7-10) FOR UP TO 60 DOSES. GABAPENTIN 2020-0 Yes [id number] 100mg TAKE 1 Univers 100 mg 9-22 CAPSULE BY ity of capsule 00:00: MOUTH (TWO) Medical TIMES Branch DAILY NEEDED FOR PAIN (SCALE 4-6) OR PAIN (SCALE 7-10) FOR UP TO 60 DOSES. GABAPENTIN 2020-0 Yes [id number] 100mg TAKE 1 Univers 100 mg 9-22 CAPSULE BY ity of capsule 00:00: MOUTH (TWO) Medical TIMES Branch DAILY NEEDED FOR PAIN (SCALE 4-6) OR PAIN (SCALE 7-10) FOR UP TO 60 DOSES. GABAPENTIN 2020-0 Yes [id number] 100mg TAKE 1 Univers 100 mg 9-22 CAPSULE BY ity of capsule 00:00: MOUTH (TWO) Medical TIMES Branch DAILY NEEDED FOR PAIN (SCALE 4-6) OR PAIN (SCALE 7-10) FOR UP TO 60 DOSES. GABAPENTIN 2020-0 Yes [id number] 100mg TAKE 1 Univers 100 mg 9-22 CAPSULE BY ity of capsule 00:00: MOUTH 2 (TWO) Medical TIMES Branch DAILY NEEDED FOR PAIN (SCALE 4-6) OR PAIN (SCALE 7-10) FOR UP TO 60 DOSES. GABAPENTIN 2020-0 Yes [id number] 100mg TAKE 1 Univers 100 mg 9-22 CAPSULE BY ity of capsule 00:00: MOUTH 2 (TWO) Medical TIMES Branch DAILY NEEDED FOR PAIN (SCALE 4-6) OR PAIN (SCALE 7-10) FOR UP TO 60 DOSES. cyclobenzap 2020-0 Yes [id number] 5mg Take 1 Univers rine 5 mg 8-24 tablet by ity o f tablet 00:00: mouth (two) Medical times Branch daily as needed for Muscle Spasms. cyclobenzap 2020-0 Yes [id number] 5mg Take 1 Univers rine 5 mg 8-24 tablet by ity o f tablet 00:00: mouth (two) Medical times Branch daily as needed for Muscle Spasms. cyclobenzap 2020-0 Yes [id number] 5mg Take 1 Univers rine 5 mg 8-24 tablet by ity o f tablet 00:00: mouth (two) Medical times Branch daily as needed for Muscle Spasms. cyclobenzap 2020-0 Yes [id number] 5mg Take 1 Univers rine 5 mg 8-24 tablet by ity o f tablet 00:00: mouth 2 (two) Medical times Branch daily as needed for Muscle Spasms. cyclobenzap 2020-0 Yes [id number] 5mg Take 1 Univers rine 5 mg 8-24 tablet by ity o f tablet 00:00: mouth (two) Medical times Branch daily as needed for Muscle Spasms. cyclobenzap 2020-0 Yes [id number] 5mg Take 1 Univers rine 5 mg 8-24 tablet by ity o f tablet 00:00: mouth 2 (two) Medical times Branch daily as needed for Muscle Spasms. prednisoLON 2019-0 Yes [id number] 1[drp] Place 1 Univers E acetate 6-22 9100 Drop in ity of (PRED 00:00: left eye 4 [place] FORT) 1 % 00 (four) Medical ophthalmic times Branch suspension daily. drops cyclopentol 2020-0 Yes [id number] 1[drp] Place 1 Univers ate 1 % 6-22 9100 Drop in ity of ophthalmic 00:00: left eye 2 [place] drops 00 (two) Medical times Branch daily. prednisoLON 2020-0 Yes [id number] 1[drp] Place 1 Univers E acetate 6-22 9100 Drop in ity of (PRED 00:00: left eye 4 [place] FORTE) 1 % 00 (four) Medical ophthalmic times Branch suspension daily. drops cyclopentol 2020-0 Yes [id number] 1[drp] Place 1 Univers ate 1 % 6-22 9100 Drop in ity of ophthalmic 00:00: left eye 2 [place] drops 00 (two) Medical times Branch daily. prednisoLON 2020-0 Yes [id number] 1[drp] Place 1 Univers E acetate 6-22 9100 Drop in ity of (PRED 00:00: left eye 4 [place] FORTE) 1 % 00 (four) Medical ophthalmic times Branch suspension daily. drops cyclopentol 2020-0 Yes [id number] 1[drp] Place 1 Univers ate 1 % 6-22 9100 Drop in ity of ophthalmic 00:00: left eye 2 [place] drops 00 (two) Medical times Branch daily. prednisoLON 2020-0 Yes [id number] 1[drp] Place 1 Univers E acetate 6-22 9100 Drop in ity of (PRED 00:00: left eye 4 [place] FORTE) 1 % 00 (four) Medical ophthalmic times Branch suspension daily. drops cyclopentol 2020-0 Yes [id number] 1[drp] Place 1 Univers ate 1 % 6-22 9100 Drop in ity of ophthalmic 00:00: left eye 2 [place] drops 00 (two) Medical times Branch daily. prednisoLON 2020-0 Yes [id number] 1[drp] Place 1 Univers E acetate 6-22 9100 Drop in ity of (PRED 00:00: left eye 4 [place] FORTE) 1 % 00 (four) Medical ophthalmic times Branch suspension daily. drops cyclopentol 2020-0 Yes [id number] 1[drp] Place 1 Univers ate 1 % 6-22 9100 Drop in ity of ophthalmic 00:00: left eye 2 [place] drops 00 (two) Medical times Branch daily. prednisoLON 2020-0 Yes [id number] 1[drp] Place 1 Univers E acetate 6-22 9100 Drop in ity of (PRED 00:00: left eye 4 [place] FORTE) 1 % 00 (four) Medical ophthalmic times Branch suspension daily. drops cyclopentol 2020-0 Yes [id number] 1[drp] Place 1 Univers ate 1 % 6-22 9100 Drop in ity of ophthalmic 00:00: left eye 2 [place] drops 00 (two) Medical times Branch daily. amitriptyli 2020-0 Yes Take by Un jose r ne HCl 6-04 mouth. ity of (AMITRIPTYL 11:23: [place] INE ORAL) 35 Medical Branch insulin 2020-0 Yes inject Univers glulisine 6-04 under the ity o f (APIDRA SC) 11:23: skin. [address] Branch amitriptyli 2020-0 Yes Take by Un jose r ne HCl 6-04 mouth. ity of (AMITRIPTYL 11:23: [place] INE ORAL) 35 Medical Branch insulin 2020-0 Yes inject Univers glulisine 6-04 under the ity o f (APIDRA SC) 11:23: skin. [address] Branch amitriptyli 2020-0 Yes Take by Un jose r ne HCl 6-04 mouth. ity of (AMITRIPTYL 11:23: [place] INE ORAL) 35 Medical Branch insulin 2020-0 Yes inject Univers glulisine 6-04 under the ity o f (APIDRA SC) 11:23: skin. [place] [address] Medical Branch amitriptyli 2020-0 Yes Take by Un jose r ne HCl 6-04 mouth. ity of (AMITRIPTYL 11:23: [place] INE ORAL) 35 Medical Branch insulin 2020-0 Yes inject Univers glulisine 6-04 under the ity o f (APIDRA SC) 11:23: skin. [address] Branch amitriptyli 2020-0 Yes Take by Un jose r ne HCl 6-04 mouth. ity of (AMITRIPTYL 11:23: [place] INE ORAL) 35 Medical Branch insulin 2020-0 Yes inject Univers glulisine 6-04 under the ity o f (APIDRA SC) 11:23: skin. [place] 35 Medical Branch amitriptyli 2020-0 Yes Take by Un jose r ne HCl 6-04 mouth. ity of (AMITRIPTYL 11:23: [place] INE ORAL) Medical Branch insulin 2020-0 Yes inject Univers glulisine 6-04 under the ity o f (APIDRA SC) 11:23: skin. [place] [address] Medical Branch 2020-0 Yes [id number] 1{tbl} Take 1 Univers vitamin 6-03 tablet by ity of w/FA tablet 00:00: mouth [place] 00 daily. Medical Branch docusate 2020-0 Yes [id number] 240mg Take 1 U nivers calcium 240 6-03 capsule by it y of mg capsule 00:00: mouth once [place] 00 daily as Medical needed for Branch Constipati on. ferrous 2020-0 Yes [id number] 325mg Take 1 Un jose r sulfate 325 6-03 tablet by ity of mg (65 mg 00:00: mouth 2 [place] iron) 00 (two) Medical tablet times Branch daily. ibuprofen 2020-0 Yes [id number] 600mg Take 1 Univers 600 mg 6-03 tablet by ity of tablet 00:00: mouth [place] 00 every 6 Medical (six) Branch hours as needed (Pain). Take with food or milk. vitamin C 2020-0 Yes [id number] 1000mg Take 1 Univers with stephy 6-03 tablet by ity o f hips 1,000 00:00: mouth [place] mg tablet 00 daily. Medical Branch 2020-0 Yes [id number] 1{tbl} Take 1 Univers vitamin 6-03 tablet by ity of w/FA tablet 00:00: mouth [place] 00 daily. Medical Branch docusate 2020-0 Yes [id number] 240mg Take 1 U nivers calcium 240 6-03 capsule by it y of mg capsule 00:00: mouth once [place] 00 daily as Medical needed for Branch Constipati on. ferrous 2020-0 Yes [id number] 325mg Take 1 Un jose r sulfate 325 6-03 tablet by ity of mg (65 mg 00:00: mouth 2 [place] iron) 00 (two) Medical tablet times Branch daily. ibuprofen 2020-0 Yes [id number] 600mg Take 1 Univers 600 mg 6-03 tablet by ity of tablet 00:00: mouth [place] 00 every 6 Medical (six) Branch hours as needed (Pain). Take with food or milk. vitamin C 2020-0 Yes [id number] 1000mg Take 1 Univers with stephy 6-03 tablet by ity o f hips 1,000 00:00: mouth [place] mg tablet 00 daily. Medical Branch 2020-0 Yes [id number] 1{tbl} Take 1 Univers vitamin 6-03 tablet by ity of w/FA tablet 00:00: mouth [place] 00 daily. Medical Branch docusate 2020-0 Yes [id number] 240mg Take 1 U nivers calcium 240 6-03 capsule by it y of mg capsule 00:00: mouth once [place] 00 daily as Medical needed for Branch Constipati on. ferrous 2020-0 Yes [id number] 325mg Take 1 Un jose r sulfate 325 6-03 tablet by ity of mg (65 mg 00:00: mouth 2 [place] iron) 00 (two) Medical tablet times Branch daily. ibuprofen 2020-0 Yes [id number] 600mg Take 1 Univers 600 mg 6-03 tablet by ity of tablet 00:00: mouth [place] 00 every 6 Medical (six) Branch hours as needed (Pain). Take with food or milk. vitamin C 2020-0 Yes [id number] 1000mg Take 1 Univers with stephy 6-03 tablet by ity o f hips 1,000 00:00: mouth [place] mg tablet 00 daily. Medical Branch 2020-0 Yes [id number] 1{tbl} Take 1 Univers vitamin 6-03 tablet by ity of w/FA tablet 00:00: mouth [place] 00 daily. Medical Branch docusate 2020-0 Yes [id number] 240mg Take 1 U nivers calcium 240 6-03 capsule by it y of mg capsule 00:00: mouth once [place] 00 daily as Medical needed for Branch Constipati on. ferrous 2020-0 Yes [id number] 325mg Take 1 Un jose r sulfate 325 6-03 tablet by ity of mg (65 mg 00:00: mouth 2 [place] iron) 00 (two) Medical tablet times Branch daily. ibuprofen 2020-0 Yes [id number] 600mg Take 1 Univers 600 mg 6-03 tablet by ity of tablet 00:00: mouth [place] 00 every 6 Medical (six) Branch hours as needed (Pain). Take with food or milk. vitamin C 2020-0 Yes [id number] 1000mg Take 1 Univers with stephy 6-03 tablet by ity o f hips 1,000 00:00: mouth [place] mg tablet 00 daily. Medical Branch 2020-0 Yes [id number] 1{tbl} Take 1 Univers vitamin 6-03 tablet by ity of w/FA tablet 00:00: mouth [place] 00 daily. Medical Branch docusate 2020-0 Yes [id number] 240mg Take 1 U nivers calcium 240 6-03 capsule by it y of mg capsule 00:00: mouth once [place] 00 daily as Medical needed for Branch Constipati on. ferrous 2020-0 Yes [id number] 325mg Take 1 Un jose r sulfate 325 6-03 tablet by ity of mg (65 mg 00:00: mouth 2 [place] iron) 00 (two) Medical tablet times Branch daily. ibuprofen 2020-0 Yes [id number] 600mg Take 1 Univers 600 mg 6-03 tablet by ity of tablet 00:00: mouth [place] 00 every 6 Medical (six) Branch hours as needed (Pain). Take with food or milk. vitamin C 2020-0 Yes [id number] 1000mg Take 1 Univers with stephy 6-03 tablet by ity o f hips 1,000 00:00: mouth [place] mg tablet 00 daily. Medical Branch 2020-0 Yes [id number] 1{tbl} Take 1 Univers vitamin 6-03 tablet by ity of w/FA tablet 00:00: mouth [place] 00 daily. Medical Branch docusate 2020-0 Yes [id number] 240mg Take 1 U nivers calcium 240 6-03 capsule by it y of mg capsule 00:00: mouth once [place] 00 daily as Medical needed for Branch Constipati on. ferrous 2020-0 Yes [id number] 325mg Take 1 Un jose r sulfate 325 6-03 tablet by ity of mg (65 mg 00:00: mouth 2 [place] iron) 00 (two) Medical tablet times Branch daily. ibuprofen 2020-0 Yes [id number] 600mg Take 1 Univers 600 mg 6-03 tablet by ity of tablet 00:00: mouth [place] 00 every 6 Medical (six) Branch hours as needed (Pain). Take with food or milk. vitamin C 2020-0 Yes [id number] 1000mg Take 1 Univers with stephy 6-03 tablet by ity o f hips 1,000 00:00: mouth [place] mg tablet 00 daily. [facility] Branch Immunizations Ordered Filled Immunization Date Status Comments [facility] Immunization Name Name SARS-COV-2 COVID-19 2021-01-17 Completed [facility] [place] of [employer] VACCINE 00:00:00 [facility] SARS-COV-2 COVID-19 2021-01-17 Completed Unive rsity of PFIZER VACCINE 00:00:00 [facility] SARS-COV-2 COVID-19 2021-01-17 Completed Unive rsity of PFIZER VACCINE 00:00:00 [facility] SARS-COV-2 COVID-19 2021-01-17 Completed Unive rsity of PFIZER VACCINE 00:00:00 [facility] SARS-COV-2 COVID-19 2021-01-17 Completed Unive rsity of PFIZER VACCINE 00:00:00 [facility] SARS-COV-2 COVID-19 2021-01-17 Completed Unive rsity of PFIZER VACCINE 00:00:00 [facility] SARS-COV-2 COVID-19 2020-12-27 Completed Unive rsity of PFIZER VACCINE 00:00:00 [facility] SARS-COV-2 COVID-19 2020-12-27 Completed Unive rsity of PFIZER VACCINE 00:00:00 [facility] SARS-COV-2 COVID-19 2020-12-27 Completed Unive rsity of PFIZER VACCINE 00:00:00 [facility] SARS-COV-2 COVID-19 2020-12-27 Completed Unive rsity of PFIZER VACCINE 00:00:00 [facility] SARS-COV-2 COVID-19 2020-12-27 Completed Unive rsity of PFIZER VACCINE 00:00:00 [facility] SARS-COV-2 COVID-19 2020-12-27 Completed Unive rsity of PFIZER VACCINE 00:00:00 [facility] TDAP (ADACEL) 2019-10-20 Completed University of VACCINE 00:00:00 [facility] TDAP (ADACEL) 2019-10-20 Completed University of VACCINE 00:00:00 [facility] TDAP (ADACEL) 2019-10-20 Completed University of VACCINE 00:00:00 [facility] TDAP (ADACEL) 2019-10-20 Completed University of VACCINE 00:00:00 [facility] TDAP (ADACEL) 2019-10-20 Completed University of VACCINE 00:00:00 [facility] TDAP (ADACEL) 2019-10-20 Completed University of VACCINE 00:00:00 [facility] Influenza Virus 2019-03-16 Completed Universit y of Vaccine Quad IM 3+ 00:00:00 [facility] Influenza Virus 2019-03-16 Completed Universit y of Vaccine [place] IM 3+ 00:00:00 [facility] Influenza Virus 2019-03-16 Completed Universit y of Vaccine [place] IM 3+ 00:00:00 [facility] Influenza Virus 2019-03-16 Completed Universit y of Vaccine [place] IM 3+ 00:00:00 [facility] Influenza Virus 2019-03-16 Completed Universit y of Vaccine [place] IM 3+ 00:00:00 [facility] Influenza Virus 2019-03-16 Completed Universit y of Vaccine [place] IM 3+ 00:00:00 [facility] Varicella 2014-10-12 Completed University of (varivax)(chicken 00:00:00 [place] M edical pox) Branch Varicella 2014-10-12 Completed University of (varivax)(chicken 00:00:00 [place] M edical pox) Branch Varicella 2014-10-12 Completed University of (varivax)(chicken 00:00:00 [place] M edical pox) Branch Varicella 2014-10-12 Completed University of (varivax)(chicken 00:00:00 [place] M edical pox) Branch Varicella 2014-10-12 Completed University of (varivax)(chicken 00:00:00 [place] M edical pox) Branch Varicella 2014-10-12 Completed University of (varivax)(chicken 00:00:00 [place] M edical pox) Branch MMR 2014-08-30 Completed University of 00:00:00 [facility] Varicella 2014-08-30 Completed University of (varivax)(chicken 00:00:00 [place] M edical pox) Branch MMR 2014-08-30 Completed University of 00:00:00 [facility] Varicella 2014-08-30 Completed University of (varivax)(chicken 00:00:00 [place] M edical pox) Branch MMR 2014-08-30 Completed University of 00:00:00 [facility] Varicella 2014-08-30 Completed University of (varivax)(chicken 00:00:00 [place] M edical pox) Branch MMR 2014-08-30 Completed University of 00:00:00 [facility] Varicella 2014-08-30 Completed University of (varivax)(chicken 00:00:00 [place] M edical pox) Branch MMR 2014-08-30 Completed University of 00:00:00 [facility] Varicella 2014-08-30 Completed University of (varivax)(chicken 00:00:00 [place] M edical pox) Branch MMR 2014-08-30 Completed University of 00:00:00 [facility] Varicella 2014-08-30 Completed University of (varivax)(chicken 00:00:00 [place] M edical pox) Branch TDAP 2014-06-29 Completed University of 00:00:00 [facility] TDAP 2014-06-29 Completed University of 00:00:00 [facility] TDAP 2014-06-29 Completed University of 00:00:00 [facility] TDAP 2014-06-29 Completed University of 00:00:00 [facility] TDAP 2014-06-29 Completed University of 00:00:00 [facility] TDAP 2014-06-29 Completed University of 00:00:00 [facility] Influenza Virus 2014-04-20 Completed Universit y of Vaccine (3+ yrs) 00:00:00 [facility] Influenza Virus 2014-04-20 Completed Universit y of Vaccine (3+ yrs) 00:00:00 [facility] Influenza Virus 2014-04-20 Completed Universit y of Vaccine (3+ yrs) 00:00:00 [facility] Influenza Virus 2014-04-20 Completed Universit y of Vaccine (3+ yrs) 00:00:00 [facility] Influenza Virus 2014-04-20 Completed Universit y of Vaccine (3+ yrs) 00:00:00 [facility] Influenza Virus 2014-04-20 Completed Universit y of Vaccine (3+ yrs) 00:00:00 [facility] TDAP 2012-09-13 Completed University of 00:00:00 [facility] TDAP 2012-09-13 Completed University of 00:00:00 [facility] TDAP 2012-09-13 Completed University of 00:00:00 [facility] TDAP 2012-09-13 Completed University of 00:00:00 [facility] TDAP 2012-09-13 Completed University of 00:00:00 [facility] TDAP 2012-09-13 Completed University of 00:00:00 [facility] Varicella 2011-10-23 Completed University of (varivax)(chicken 00:00:00 [place] M [facility]ical pox) Branch Varicella 2011-10-23 Completed University of (varivax)(chicken 00:00:00 [place] M edical pox) Branch Varicella 2011-10-23 Completed University of (varivax)(chicken 00:00:00 [place] M edical pox) Branch Varicella 2011-10-23 Completed University of (varivax)(chicken 00:00:00 [place] M edical pox) Branch Varicella 2011-10-23 Completed University of (varivax)(chicken 00:00:00 [place] M edical pox) Branch Varicella 2011-10-23 Completed University of (varivax)(chicken 00:00:00 [place] M edical pox) Branch Rubella 2011-05-18 Completed University of 00:00:00 [facility] Rubella 2011-05-18 Completed University of 00:00:00 [facility] Rubella 2011-05-18 Completed University of 00:00:00 [facility] Rubella 2011-05-18 Completed University of 00:00:00 [facility] Rubella 2011-05-18 Completed University of 00:00:00 [facility] [facility] Rubella 2011-05-18 Completed [facility] 00:00:00 [facility] Vital Signs Vital Name Observation Time Observation Value Comments Source Body height 2021-10-10 20:06:00 149.9 cm [facility] Body weight 2021-10-10 20:06:00 80.287 kg [facility] BMI 2021-10-10 20:06:00 35.75 kg/m2 [facility] Procedures Procedure Date / Time Performed Performing Clinician Soursharon e CT CERVICAL SPINE WO 2021-12-13 20:23:00 Starla Ceja [facility] Medical Branch NOTICE OF PRIVACY 2021-12-13 19:52:14 Doctor Unassigned, No [facility] PRACTICES Name Medical Branch CONSENT/REFUSAL FOR 2021-12-13 19:51:57 Doctor Unassigned, No [facility] DIAGNOSIS AND [facility] Medical Branch TREATMENT ASSIGNMENT OF BENEFITS 2021-12-13 19:51:35 Doctor Unassigned, No [facility] Name Medical Branch Encounters Start End Encounter Admission Attending Care Care Encounter Source Date/Time Date/Time Type Type Clinicians Facility Department ID 2021-12-13 2021-12-13 [facility] WILLIAN Ceja [id number] Univers 14:55:49 23:59:00 Encounter Starla GL[place] [id number] [id number] [id number] [facility] 801 Branch 2021-12-13 2021-12-13 [facility] [id number] Univers 14:54:21 14:54:21 Encounter Starla GLOVER [id number] [id number] [id number] [facility] 807 Branch 2021-12-13 2021-12-13 Outpatient [facility] [id number] Univers 00:00:00 14:54:21 [facility] 2021-12-13 2021-12-13 [facility]patient [facility] [id number] Univers 00:00:00 00:00:00 STARLA [id number] [facility] 2021-11-26 2021-11-26 [facility] [id number] Univers 00:00:00 00:00:00 Starla Arrington [facility] [id number] i [id number] [id number] [address] OFFICE BUILDING 2021-11-03 2021-11-03 Ancillary Olivia Avina [facility] 1.2.84 0.114 [id number] Univers 16:45:00 17:30:00 Visit Ayah Padilla [id number] [facility] [id number] [phone] Ga dical [facility] 179 Branch BUILDING 2021-11-03 2021-11-03 Outpatient Aj [facility] [id number] Univers 16:45:00 16:45:00 AYAH [facility] 2021-11-03 2021-11-03 Outpatient [facility] [id number] Univers 16:45:00 16:45:00 [id number] ity [facility] 2021-11-01 2021-11-01 Outpatient [facility] [id number] Univers 17:00:00 17:00:00 [id number] ity [facility] 2021-10-28 2021-10-28 Outpatient [facility] [id number] Univers 16:00:00 16:00:00 [id number] ity [facility] 2021-10-25 2021-10-25 Outpatient R [facility] [id number] Univers 17:00:00 17:00:00 [id number] ity [facility] 2021-10-20 2021-10-20 Outpatient R [facility] [id number] Univers 00:00:00 00:00:00 [facility] 2021-10-19 2021-10-19 Ancillary Olivia Avina [facility] 1.2.84 0.114 [id number] Univers 16:00:00 16:45:00 [facility] [id number] it[id number] [phone] Ga dical NAL [address] BUILDING 2021-10-10 2021-10-10 Office Yasmany Fountain [facility] [id number] Univers 15:15:00 17:10:41 Visit HEALTH [id number] it [id number] [id number] [facility] [address] OFFICE BUILDING 2021-10-10 2021-10-10 Outpatient YASMANY COWART [facility] [id number] Univers 15:15:00 17:10:41 ity [facility] 2021-10-10 2021-10-10 Outpatient ANTHONY [facility] [id number] Univers 15:55:00 15:55:00 STARLA [id number] [facility] 2021-05-25 2021-05-25 Outpatient [facility] VFP [id number] [facility] 06:15:00 06:15:00 T_I [id number] Family Practic e 2016-04-10 2016-04-11 [facility] [id number] Memoria 18:17:00 04:59:00 aj Dalal 01 l [facility] Results This patient has no known results.
--- NOTE | 2021-12-23 13:46 | RAD REPORT ---
EXAM DESCRIPTION: CT - Ct Stroke Brain Wo Cont - 12/23/2021 1:36 pm CLINICAL HISTORY: Neuro deficit, acute, stroke suspected COMPARISON: No comparisons TECHNIQUE: Axial 5 millimeter thick images of the head were obtained without IV contrast. All CT scans are performed using dose optimization technique as appropriate and may include automated exposure control or mA/KV adjustment according to patient size. FINDINGS: No intracranial hemorrhage, mass, or cerebral edema. No acute infarction identifiable. No extra-axial fluid collections. Ontiveros matter-white matter differentiation is preserved. Visualized portions of the mastoid air cells, paranasal sinuses, and orbits are unremarkable. Findings telephoned to Dr Tejeda 142 p.m. IMPRESSION: No CT evidence of acute intracranial process.
[2021-12-23] MEDS ORDERED: FOLIC ACID 5 MG/ML VIAL ONE (13:59)
[2021-12-23] MEDS ORDERED: NA CHLORIDE 0.9% 1,000 ML ONE (13:59)
[2021-12-23 14:04] LABS: Absolute Lymphocytes (CBC) 1.6 K/uL (0.7-4.9); Hematocrit 40.7 % (36.0-45.0); Lymphocytes % 19.5 % (15.3-44.8); MPV 7.3 fL (7.6-11.3); RBC Red Blood Cell Count 5.01 M/uL (3.86-4.86)
[2021-12-23 14:08] LABS: Protime INR 0.96
[2021-12-23] MEDS ORDERED: TENECTEPLASE 50 MG/10 ML VIAL IV ONE (14:09)
--- NOTE | 2021-12-23 14:10 | ER ---
Nurse's Notes [facility] Name: Idalia Pastor Age: 31 yrs Sex: Female : 1990 Arrival Date: 12/23/2021 Time: 13:24 Bed 3 Private MD: Diagnosis: Cerebral infarction, unspecified;Adverse effect of insulin and oral hypoglycemic [antidiabetic] drugs;Type 1 diabetes mellitus with hypoglycemia;UTI/ Urinary tract infection, site not specified Presentation: 12/23 13:47 Chief complaint: Patient states: low blood sugar (32) with EMS, left side numbness, harvey left facial droop, last well known 1230pm. Coronavirus screen: Vaccine status: Patient reports receiving the 2nd dose of the covid vaccine. Ebola Screen: Patient denies travel to an Ebola-affected area in the 21 days before illness onset. Initial Sepsis Screen: Does the patient meet any 2 criteria? No. Patient's initial sepsis screen is negative. Does the patient have a suspected source of infection? No. Patient's initial sepsis screen is negative. Risk Assessment: Do you want to hurt yourself or someone else? Patient reports no desire to harm self or others. Onset of symptoms was December 23, 2021. 13:47 Method Of Arrival: EMS: [facility] harvey 13:47 Acuity: KEN 2 harvey Triage Assessment: 13:52 General: Appears in no apparent distress. Behavior is calm, cooperative. Pain: Denies harvey pain. Historical: - Allergies: 13:50 Latex, Natural Rubber; harvey - Home Meds: 13:50 gabapentin 300 mg oral cap 1 cap 3 times per day [Active]; fluoxetine 10 mg Oral cap 1 harvey cap once daily [Active]; mirtazapine 15 mg Oral tab 1 tab once daily [Active]; Novolin R Sub-Q [Active]; - PMHx: 13:52 Diabetes - IDDM; Migraines; harvey - Immunization history:: Adult Immunizations up to date. - Social history:: Smoking status: Patient denies any tobacco usage or history of. - Family history:: not pertinent. Screenin:53 Abuse screen: Denies threats or abuse. Denies injuries from another. Nutritional harvey screening: No deficits noted. Tuberculosis screening: No symptoms or risk factors identified. Fall Risk IV access (20 points). Assessment: 13:53 Neuro: Level of Consciousness is awake, alert, obeys commands, Oriented to person, harvey Speech is slurred, Facial droop on left. 14:33 Reassessment: provider notified of critical troponin. ap3 15:41 Reassessment: Patient and/or family updated on plan of care and expected duration. Pain ap3 level reassessed. Patient is alert, oriented x 3, equal unlabored respirations, skin warm/dry/pink. Vital Signs: 13:47 BP 163 / 84; Pulse 83; Resp 18; Temp 98.1(O); Pulse Ox 100% on R/A; Weight 87 kg; harvey Height 5 ft. (152.40 cm); 14:06 BP 147 / 69; Pulse 85; Resp 18; Pulse Ox 100% on R/A; harvey 14:15 BP 129 / 65; Pulse 87; Resp 18; Pulse Ox 100% ; harvey 15:40 BP 135 / 65; Pulse 75; Pulse Ox 98% on R/A; ap3 13:47 Body Mass Index 37.46 (87.00 kg, 152.40 cm) harvey NIH Stroke Scale Scores: 13:53 NIHSS Score: 11 harvey 14:03 NIHSS Score: 4 koby ED Course: 13:24 Patient arrived in ED. eb 13:24 Sulaiman Tejeda MD is Attending Physician. koby 13:30 Maintain EMS IV. Dressing intact. Good blood return noted. Site clean \\T\\ dry. Gauge \\T\\ ap 3 site: 20g Left AC. 13:38 CT Stroke Brain w/o Contrast In Process Unspecified. EDMS 13:47 Viviana Helm, RN is Primary Nurse. harvey 13:50 Triage completed. harvey 13:52 Arm band placed on. harvey 13:53 No provider procedures requiring assistance completed. harvey 13:53 Patient has correct armband on for positive identification. Bed in low position. harvey 13:59 COVID-19 (Coronavirus) Document "Date of Onset" if Symptomatic Sent. harvey 13:[address] Tejeda with Noni Landers Rn from the [facility]/. 14:[address] Lopez the neurologist personal banking advisor for [facility] with Dr. Tejeda for eb patient transfer consultation. 14:24 Stroke CXR 1 View In Process Unspecified. EDMS 14:28 administrative approval given by Shellsia Friend Rn/ patient has been accepted to [facility] 7 South 4 Bed 3/ Dr. Андрей Lopez has accepted the patient in transfer/ report to be called to [phone]. 15:09 CT Head Angio In Process Unspecified. EDMS 15:09 CT Neck Angio In Process Unspecified. EDMS 16:37 Patient transferred, IV remains in place. harvey Administered Medications: 13:58 Drug: foLIC Acid 1 mg Route: IVPB; Site: left antecubital; harvey 13:58 Drug: NS 0.9% 1000 ml Route: IV; Rate: 1 bolus; Site: left antecubital; harvey 14:10 Drug: Tenecteplase 22 mg Route: IV; Rate: per protocol; Site: left antecubital; harvey 14:21 Follow up: IV Status: Completed infusion harvey 14:21 Drug: ProTONIX (pantoprazole) 40 mg Route: IVP; Site: left antecubital; harvey 14:21 Follow up: Response: No adverse reaction harvey 14:21 Drug: D50W 50 ml Route: IVP; Site: left antecubital; harvey 14:21 Follow up: Response: No adverse reaction harvey 14:28 Drug: Rocephin (cefTRIAXone) 1 grams Route: IV; Rate: per protocol; Site: left harvey antecubital; 14:28 Follow up: IV Status: Completed infusion harvey Medication: 13:53 VIS not applicable for this client. harvey Outcome: 14:10 ER care complete, transfer ordered by [facility] 16:[address] [facility]. harvey 16:37 Condition: good 16:37 Instructed on the need for transfer. 16:38 Patient left the ED. harvey NIH Stroke Scale - NIH Stroke Score Date: 12/23/2021 Time: 13:53 Total Score = 11 1a. Level of Consciousness (LOC) - 0(Alert) 1b. Level of Consciousness (LOC) (Month \\T\\ Age) - 0(Both) 1c. LOC Commands (Open \\T\\ Closes Eyes/Corporate Director Talent Assessment) - 0(Both) 2. Best Gaze (Lateral Gaze Paresis) - 0(Normal) 3. Visual Field Loss - 0(No visual loss) 4. Facial Palsy - 2(Partial paralysis) 5a. Left Arm: Motor (10-second hold) - 2(Drift, some effort against gravity) 5b. Right Arm: Motor (10-second hold) - 0(No drift) 6a. Left Leg: Motor (5-second hold - always test supine) - 2(Drift, some effort against gravity) 6b. Right Leg: Motor (5-second hold - always test supine) - 0(No drift) 7. Limb Ataxia (finger/nose \\T\\ heel/marrufo - test with eyes open) - 1(Present in one limb) 8. Sensory Loss (pinprick arms/legs/face) - 1(Mild to moderate loss) 9. Best Language: Aphasia (description/naming/reading) - 1(Mild to moderate aphasia) 10. Dysarthria (speech clarity - read or repeat words) - 1(Mild to Moderate) 11. Extinction and Inattention (visual/tactile/auditory/spatial/personal) - 1(Present) Initials: harvey NIH Stroke Scale - NIH Stroke Score Date: 12/23/2021 Time: 14:03 Total Score = 4 1a. Level of Consciousness (LOC) - 0(Alert) 1b. Level of Consciousness (LOC) (Month \\T\\ Age) - 0(Both) 1c. LOC Commands (Open \\T\\ Closes Eyes/Corporate Director Talent Assessment) - 0(Both) 2. Best Gaze (Lateral Gaze Paresis) - 0(Normal) 3. Visual Field Loss - 0(No visual loss) 4. Facial Palsy - 1(Minor Paralysis) 5a. Left Arm: Motor (10-second hold) - 1(Drift) 5b. Right Arm: Motor (10-second hold) - 0(No drift) 6a. Left Leg: Motor (5-second hold - always test supine) - 1(Drift) 6b. Right Leg: Motor (5-second hold - always test supine) - 0(No drift) 7. Limb Ataxia (finger/nose \\T\\ heel/marrufo - test with eyes open) - 1(Present in one limb) 8. Sensory Loss (pinprick arms/legs/face) - 0(Normal) 9. Best Language: Aphasia (description/naming/reading) - 0(No aphasia) 10. Dysarthria (speech clarity - read or repeat words) - 0(Normal) 11. Extinction and Inattention (visual/tactile/auditory/spatial/personal) - 0(No abnormality) Initials: koby Signatures: Dispatcher [employer] Sulaiman Montenegro MD MD cha Prokisch, Amanda, RN RN ap3 Juani Crawford Heather, RN RN harvey Corrections: (The following items were deleted from the chart) 14:05 13:47 BP 163 / 84; Pulse 83bpm; Resp 18bpm; Pulse Ox 100% RA; Temp 98.1F Oral; harvey 81.65 kg; Height 5 ft.; BMI: 35.1; harvey 15:29 15:28 Reassessment: provider notified of critical troponin ap3 ap3
--- NOTE | 2021-12-23 14:11 | EDPHYS ---
Physician Documentation [facility] Name: Idalia Pastor Age: 31 yrs Sex: Female : 1990 Arrival Date: 12/23/2021 Time: 13:24 Bed 3 Private MD: ED Physician Sulaiman Tejeda HPI: 12/23 14:03 This 31 yrs old Female presents to ER via EMS with complaints of left arm, leg koby and face weak 1230am. 14:03 The patient's problem is reported as weakness, in the left upper extremity, in the left koby lower extremity, in the left side of face. Onset: The symptoms/episode began/occurred 1.5 hour(s) ago. Duration: The episode is continuous. Context: the episode(s) was witnessed, by family. The symptoms are alleviated by nothing. The symptoms are aggravated by nothing. Associated signs and symptoms: The patient has no apparent associated signs or symptoms. Severity of symptoms: At their worst the symptoms were mild in the emergency department the symptoms are unchanged. The patient has not experienced similar symptoms in the past. Historical: - Allergies: 13:50 Latex, Natural Rubber; harvey - Home Meds: 13:50 gabapentin 300 mg oral cap 1 cap 3 times per day [Active]; fluoxetine 10 mg Oral cap 1 harvey cap once daily [Active]; mirtazapine 15 mg Oral tab 1 tab once daily [Active]; Novolin R Sub-Q [Active]; - PMHx: 13:52 Diabetes - IDDM; Migraines; harvey - Immunization history:: Adult Immunizations up to date. - Social history:: Smoking status: Patient denies any tobacco usage or history of. - Family history:: not pertinent. ROS: 14:03 Constitutional: Negative for fever, chills, and weight loss, Eyes: Negative for injury, koby pain, redness, and discharge, ENT: Negative for injury, pain, and discharge, Neck: Negative for injury, pain, and swelling, Cardiovascular: Negative for chest pain, palpitations, and edema, Respiratory: Negative for shortness of breath, cough, wheezing, and pleuritic chest pain, Abdomen/GI: Negative for abdominal pain, nausea, vomiting, diarrhea, and constipation, Back: Negative for injury and pain, : Negative for injury, bleeding, discharge, and swelling, Skin: Negative for injury, rash, and discoloration, Psych: Negative for depression, anxiety, suicide ideation, homicidal ideation, and hallucinations, Allergy/Immunology: Negative for hives, rash, and allergies, Hematologic/Lymphatic: Negative for swollen nodes, abnormal bleeding, and unusual bruising. 14:03 MS/extremity: Positive for decreased range of motion, paresthesias, of the face, left arm and left leg. 14:03 Endocrine: Positive for hypoglycemia, 30's at home. Exam: 14:03 Radiologist reports: negative koby 14:03 Constitutional: This is a well developed, well nourished patient who is awake, alert, and in no acute distress. Head/Face: Normocephalic, atraumatic. Eyes: Pupils equal round and reactive to light, extra-ocular motions intact. Lids and lashes normal. Conjunctiva and sclera are non-icteric and not injected. Cornea within normal limits. Periorbital areas with no swelling, redness, or edema. ENT: Nares patent. No nasal discharge, no septal abnormalities noted. Tympanic membranes are normal and external auditory canals are clear. Oropharynx with no redness, swelling, or masses, exudates, or evidence of obstruction, uvula midline. Mucous membranes moist. Neck: Trachea midline, no thyromegaly or masses palpated, and no cervical lymphadenopathy. Supple, full range of motion without nuchal rigidity, or vertebral point tenderness. No Meningismus. Chest/axilla: Normal chest wall appearance and motion. Nontender with no deformity. No lesions are appreciated. Cardiovascular: Regular rate and rhythm with a normal S1 and S2. No gallops, murmurs, or rubs. Normal PMI, no JVD. No pulse deficits. Respiratory: Lungs have equal breath sounds bilaterally, clear to auscultation and percussion. No rales, rhonchi or wheezes noted. No increased work of breathing, no retractions or nasal flaring. Abdomen/GI: Soft, non-tender, with normal bowel sounds. No distension or tympany. No guarding or rebound. No evidence of tenderness throughout. Back: No spinal tenderness. No costovertebral tenderness. Full range of motion. Skin: Warm, dry with normal turgor. Normal color with no rashes, no lesions, and no evidence of cellulitis. Psych: Awake, alert, with orientation to person, place and time. Behavior, mood, and affect are within normal limits. 14:03 Musculoskeletal/extremity: ROM: limited active range of motion, in the left arm and left leg, Circulation is intact in all extremities. Sensation intact. Compartment Syndrome exam of affected extremity: is normal. Joints: All joints appear normal with full range of motion. DVT Exam: No signs of deep vein thrombosis. no pain, no swelling, no tenderness, negative Homans' sign noted on exam, no appreciated bluish discoloration, no erythema, no increased warmth. 14:19 ECG was reviewed by the Attending Physician. [facility] Vital Signs: 13:47 BP 163 / 84; Pulse 83; Resp 18; Temp 98.1(O); Pulse Ox 100% on R/A; Weight 87 kg; harvey Height 5 ft. (152.40 cm); 14:06 BP 147 / 69; Pulse 85; Resp 18; Pulse Ox 100% on R/A; harvey 14:15 BP 129 / 65; Pulse 87; Resp 18; Pulse Ox 100% ; harvey 15:40 BP 135 / 65; Pulse 75; Pulse Ox 98% on R/A; ap3 13:47 Body Mass Index 37.46 (87.00 kg, 152.40 cm) NIH Stroke Scale Scores: 13:53 NIHSS Score: 11 harvey 14:03 NIHSS Score: 4 koby MDM: 13:24 Patient medically screened. [facility] 14:10 Differential diagnosis: CVA, TIA, paralysis, drug effects. Data reviewed: vital signs, [facility] nurses notes, lab test result(s), EKG, radiologic studies, CT scan, plain films. Data interpreted: bus driver/monitor: rate is 83 beats/min, rhythm is regular, Pulse oximetry: on room air is 100 %. Test interpretation: by ED physician or midlevel provider: ECG, plain radiologic studies. Counseling: I had a detailed discussion with the patient and/or guardian regarding: the historical points, exam findings, and any diagnostic results supporting the discharge/admit diagnosis, lab results, radiology results, the need to transfer to another facility, for higher level of care, [facility] does not immediately have the required specialist. 12/23 13:29 Order name: Basic Metabolic Panel; Complete Time: 14:25 ap3 12/23 13:29 Order name: CBC with Diff; Complete Time: 14:25 ap3 12/23 13:29 Order name: Protime (+inr); Complete Time: 14:25 ap3 12/23 13:29 Order name: Ptt, Activated; Complete Time: 14:25 ap3 12/23 13:40 Order name: Glucose, Ancillary Testing; Complete Time: 14:25 EDMS 12/23 13:42 Order name: LFT's; Complete Time: 14:44 [facility] 12/23 13:42 Order name: Magnesium; Complete Time: 14:44 [facility] 12/23 13:42 Order name: NT PRO-BNP; Complete Time: 14:44 [facility] 12/23 13:42 Order name: Troponin HS; Complete Time: 14:44 [facility] 12/23 13:48 Order name: COVID-19 (Coronavirus) Document "Date of Onset" if Symptomatic ap12/23 14:02 Order name: COVID-19 SARS RT PCR (Document "Date of Onset" if Symptomatic) [facility] 12/23 14:15 Order name: Urine Dipstick-Ancillary; Complete Time: 14:25 EDOH 12/23 14:22 Order name: Glucose, Ancillary Testing; Complete Time: 14:25 EDOH 12/23 14:26 Order name: Urine Culture [facility] 12/23 13:29 Order name: CT Stroke Brain w/o Contrast; Complete Time: 14:25 ap3 12/23 13:29 Order name: Stroke CXR 1 View; Complete Time: 14:44 ap3 12/23 13:29 Order name: EKG; Complete Time: 13:30 ap12/23 13:29 Order name: Accucheck; Complete Time: 13:31 ap3 12/23 13:29 Order name: Cardiac monitoring; Complete Time: 14:23 ap3 12/23 13:29 Order name: EKG - Nurse/Tech; Complete Time: 14:23 ap3 12/23 13:29 Order name: IV Saline Lock; Complete Time: 13:29 ap3 12/23 14:02 Order name: CT Head Angio [facility] 12/23 14:02 Order name: CT Neck Angio [facility] 12/23 14:53 Order name: Urine --Ancillary (enter results) 12/23 13:29 Order name: Labs collected and sent; Complete Time: 14:23 ap3 12/23 13:29 Order name: NPO; Complete Time: 13:29 ap3 12/23 13:29 Order name: O2 Per Protocol; Complete Time: 13:31 [facility] 12/23 13:29 Order name: O2 Sat Monitoring; Complete Time: 13: [facility] 12/23 14:02 Order name: Urine Dipstick-Ancillary (obtain specimen); Complete Time: 14: [facility] 12/23 14:02 Order name: Urine Test (obtain specimen); Complete Time: 14: [facility] 12/23 14:14 Order name: Blood Glucose Level; Complete Time: 14:23 [facility] EC:19 Rate is 85 beats/min. Rhythm is regular. QRS [place] is Normal. [place] interval is normal. QRS koby interval is normal. QT interval is normal. No Q waves. T waves are Normal. No ST changes noted. Clinical impression: NSR w/ Non-specific ST/T Changes and No evidence of ischemia. Interpreted by me. Reviewed by me. Administered Medications: 13:58 Drug: foLIC Acid 1 mg Route: IVPB; Site: left antecubital; harvey 13:58 Drug: NS 0.9% 1000 ml Route: IV; Rate: 1 bolus; Site: left antecubital; harvey 14:10 Drug: Tenecteplase 22 mg Route: IV; Rate: per protocol; Site: left antecubital; harvey 14:21 Follow up: IV Status: Completed infusion harvey 14:21 Drug: ProTONIX (pantoprazole) 40 mg Route: IVP; Site: left antecubital; harvey 14:21 Follow up: Response: No adverse reaction harvey 14:21 Drug: D50W 50 ml Route: IVP; Site: left antecubital; harvey 14:21 Follow up: Response: No adverse reaction harvey 14:28 Drug: Rocephin (cefTRIAXone) 1 grams Route: IV; Rate: per protocol; Site: left harvey antecubital; 14:28 Follow up: IV Status: Completed infusion harvey Disposition Summary: 12/23/21 14:10 Transfer Ordered Transfer Location: [facility] koby Reason: Higher level of care koby Condition: Serious koby Problem: new koby Symptoms: have improved koby Accepting Physician: [place] [facility]12[place]23[place]21 16:38) harvey Diagnosis - Cerebral infarction, unspecified koby - Adverse effect of insulin and oral hypoglycemic [antidiabetic] drugs koby - Type 1 diabetes mellitus with hypoglycemia koby - UTI/ Urinary tract infection, site not specified koby Forms: - Medication Reconciliation Form koby - SBAR form koby NIH Stroke Scale - NIH Stroke Score Date: 12/23/2021 Time: 13:53 Total Score = 11 1a. Level of Consciousness (LOC) - 0(Alert) 1b. Level of Consciousness (LOC) (Month \\T\\ Age) - 0(Both) 1c. LOC Commands (Open \\T\\ Closes Eyes/[place]ander) - 0(Both) 2. Best Gaze (Lateral Gaze Paresis) - 0(Normal) 3. Visual Field Loss - 0(No visual loss) 4. Facial Palsy - 2(Partial paralysis) 5a. Left Arm: Motor (10-second hold) - 2(Drift, some effort against gravity) 5b. Right Arm: Motor (10-second hold) - 0(No drift) 6a. Left Leg: Motor (5-second hold - always test supine) - 2(Drift, some effort against gravity) 6b. Right Leg: Motor (5-second hold - always test supine) - 0(No drift) 7. Limb Ataxia (finger/nose \\T\\ heel/marrufo - test with eyes open) - 1(Present in one limb) 8. Sensory Loss (pinprick arms/legs/face) - 1(Mild to moderate loss) 9. Best Language: Aphasia (description/naming/reading) - 1(Mild to moderate aphasia) 10. Dysarthria (speech clarity - read or repeat words) - 1(Mild to Moderate) 11. Extinction and Inattention (visual/tactile/auditory/spatial/personal) - 1(Present) Initials: harvey NIH Stroke Scale - NIH Stroke Score Date: 12/23/2021 Time: 14:03 Total Score = 4 1a. Level of Consciousness (LOC) - 0(Alert) 1b. Level of Consciousness (LOC) (Month \\T\\ Age) - 0(Both) 1c. LOC Commands (Open \\T\\ Closes Eyes/[place]ander) - 0(Both) 2. Best Gaze (Lateral Gaze Paresis) - 0(Normal) 3. Visual Field Loss - 0(No visual loss) 4. Facial Palsy - 1(Minor Paralysis) 5a. Left Arm: Motor (10-second hold) - 1(Drift) 5b. Right Arm: Motor (10-second hold) - 0(No drift) 6a. Left Leg: Motor (5-second hold - always test supine) - 1(Drift) 6b. Right Leg: Motor (5-second hold - always test supine) - 0(No drift) 7. Limb Ataxia (finger/nose \\T\\ heel/marrufo - test with eyes open) - 1(Present in one limb) 8. Sensory Loss (pinprick arms/legs/face) - 0(Normal) 9. Best Language: Aphasia (description/naming/reading) - 0(No aphasia) 10. Dysarthria (speech clarity - read or repeat words) - 0(Normal) 11. Extinction and Inattention (visual/tactile/auditory/spatial/personal) - 0(No abnormality) Initials: [facility] Signatures: Dispatcher [employer] EDSulaiman Pryor MD MD cha Prokisch, Amanda RN RN [id number] Au-Stager, LONG Michelle RN Corrections: (The following items were deleted from the chart) 14:26 14:10 to stroke center , [facility] koby whalen 16:38 14:26 to stroke [place] , [facility]
[2021-12-23 14:15] LABS: Urine Blood Trace-intact (Negative); Urine Glucose Trace (Negative); Urine Protein Negative (Negative); Urine Specific Gravity 1.015 (1.005-1.030)
[2021-12-23] MEDS ORDERED: PANTOPRAZOLE 40 MG INJ ONE (14:19)
[2021-12-23 14:20] LABS: Potassium 3.5 mmol/L (3.5-5.1)
[2021-12-23] MEDS ORDERED: D5W 100 ML IV ONE (14:20)
[2021-12-23 14:25] LABS: ALT/SGPT 34 U/L (12-78); AST/SGOT 28 U/L (15-37); Albumin 3.5 g/dL (3.4-5.0); Alkaline Phosphatase 60 U/L (45-117); Bilirubin Total 0.2 mg/dL (0.2-1.0); NT PRO-BNP 72 pg/mL (<125); Protein, Total 6.9 g/dL (6.4-8.2)
[2021-12-23 14:32] LABS: Bilirubin Direct < 0.1 mg/dL (0-0.2)
--- NOTE | 2021-12-23 14:32 | RAD REPORT ---
EXAM DESCRIPTION: RAD - Chest Single View - 12/23/2021 2:22 pm CLINICAL HISTORY: stroke symptoms, Stroke protocol chest film COMPARISON: Two view chest 11/02/2014 TECHNIQUE: AP portable chest image was obtained 12/23/2021 2:22 pm . FINDINGS: No peripheral mass or consolidation. No diffuse pulmonary edema pattern identified. Inters titial pattern is mildly prominent and a mild interstitial edema or infiltrate would be possible. Heart size is upper normal. Central vasculature within normal limits. Trachea is midline. No measura ble pleural effusion and no pneumothorax. No acute bony abnormality seen. No acute aortic findings banegas spected. IMPRESSION: No acute cardiopulmonary process. Interstitial pattern is mildly prominent, possibly mild edema or infiltrate.
[2021-12-23] MEDS ORDERED: CEFTRIAXONE 1000 MG/VIAL ONE (14:33)
[2021-12-23 14:34] LABS: Troponin High Sensitivity 64.9 pg/mL (<58.9)
[2021-12-23 15:10] LABS: Urine Specific Gravity/Preg 1.015 (1.005-1.030)
--- NOTE | 2021-12-23 15:15 | RAD REPORT ---
EXAM DESCRIPTION: CT - Head angio - 12/23/2021 3:07 pm CLINICAL HISTORY: Neuro deficit, acute, stroke suspected TECHNIQUE: During dynamic enhancement using nonionic IV contrast, axial 1 millimeter thick images of the head were obtained. Sagittal and axial reconstruction images were generated using MIP technique and reviewed. All CT scans are performed using dose optimization technique as appropriate and may include automated exposure control or mA/KV adjustment according to patient size. COMPARISON: CT head same date FINDINGS: No aneurysm or vascular malformation identified. Major venous sinuses are patent. No stenosis, named branch occlusion, vasculitis or other significant vascular finding identifiable. L eft vertebral artery is dominant. Patient is a small distal right vertebral artery is a normal varian t. IMPRESSION: Negative CT angio head examination.
--- NOTE | 2021-12-23 15:16 | RAD REPORT ---
EXAM DESCRIPTION: CT - Neck Angio - 12/23/2021 3:08 pm CLINICAL HISTORY: Neuro deficit, acute, stroke suspected TECHNIQUE: During dynamic enhancement using nonionic IV contrast, axial 2 mm thick images of the nec k were obtained. Sagittal and axial reconstruction images were generated using MIP technique and revi ewed. All CT scans are performed using dose optimization technique as appropriate and may include automated exposure control or mA/KV adjustment according to patient size. COMPARISON: CT head same date, CT angio head same date FINDINGS: No aneurysm or vascular malformation identified. No carotid or vertebral dissection. No aortic arch or great vessel origin abnormality seen. Vertebral artery origins unremarkable as well . No stenosis, vasculitis or other significant carotid artery finding. No focal abnormality of either vertebral artery. Basilar artery is normal. Left vertebral artery is dominant as normal variant. IMPRESSION: Negative CT angio neck examination.
[2021-12-23 16:55] VITALS: TEMP 98.1
[2021-12-23 16:56] VITALS: BP 135/65; O2SAT 98
--- NOTE | 2021-12-24 09:12 | EKG ---
Test Date: 2021-12-23 Test Time: 13:53:22 Bill Collector: GISELLE MEASUREMENT RESULTS: Intervals: Rate: 85 VT: 148 QRSD: 88 QT: 380 QTc: 452 [place]: P: 24 VT: 148 QRS: 111 T: 43 INTERPRETIVE STATEMENTS: Normal sinus rhythm Right axis deviation Abnormal ECG Compared to ECG 03/04/2021 11:07:00 No significant changes Electronically Signed On 12-24-21 09:10:44 CDT by Teddy Coleman
== END 2021-12-23 16:38 | disposition short-term general hospital (02) ==
LOC: ER 13:22
DX: I63.9 Cerebral infarction, unspecified (principal); T38.3X5A Adverse effect of insulin and oral hypoglycemic [antidiabetic] drugs, initial encounter; E10.649 Type 1 diabetes mellitus with hypoglycemia without coma; N39.0 Urinary tract infection, site not specified; G43.909 Migraine, unspecified, not intractable, without status migrainosus; Z91.040 Latex allergy status; Z20.822 Contact with and (suspected) exposure to COVID-19
CPT/HCPCS: 92977; 93005; 87088; 85025; 87086; 80048; 36415; 83735; 81025; 85610; 82947 ×2; 80076; 85730; 81003; 84484; 83880; 70496; 70498; 70450; 71045; 96375; 96374; 99285; U0003; Q9967; C9113; J3101; J7030